=== PATIENT | male | born 1955 | race Caucasian/White ===

== ENCOUNTER 2018-12-10 22:05 | Emergency (ER) | payer SELFPAY ==
[2014-08-19 11:07] VITALS: BMI 33.5
[~2018-12-10 22:05] MED LIST: ASPI-757 PO; ASPIRIN; ATOR40TA24 PO; CEPH-13 PO; CLI150 PO; CLON0.5T66 PO; CLOP75TA PO; CRESTOR; ENOX100D6 SQ; FURO-47 PO; HYDR-653 PO; LASIX; LISI-362 PO; LISI5TAB25 PO; LOR5/325 PO; LOSA100T75 PO; METO-235 PO; METO-257 PO; METO100T20 PO; METO200T12 PO; Metoprolol Succinate PO; PAR20 PO; PARO-46 PO; PER PO; PRAS10TA PO; ROS10 PO; WARF2.5T62 PO; [UNRECOGNIZED DRUG - OTHER]; [UNRECOGNIZED DRUG - OTHER]
--- NOTE | 2018-12-10 22:20 | ER Report ---
History and Physical Time Seen By MD: 22:20 Hx. of Stated Complaint: nose bleed since 1600 then it stopped; it started up again when he stood up to pee and it started again HPI/ROS CHIEF COMPLAINT: Nosebleed HISTORY OF PRESENT ILLNESS: This is a 63-year-old male. He has had nosebleed today since about 4:00. Left nasal passage. Bleeding profusely. He is on warfarin therapy. He seen her nose and throat the past for nosebleeds and they said not to use any nasal packing. Denies any other bleeding. Warfarin uses been consistent and his INR has been therapeutic that he is aware of. No other bleeding. No nasal injuries recently. Allergies: Coded Allergies: heparin (Verified Allergy, Intermediate, ALMOST LOST A LEG, 06/24/15) Home Meds Active Scripts Hydrocodone Bit/Acetaminophen (NORCO 5-325 TABLET) 1 Each Tablet, 1 EACH PO Q4H PRN for PAIN, #12 Prov:LEROY ALVARADO DO 06/23/15 Cephalexin (KEFLEX) 500 Mg Capsule, 500 MG PO TID for prevention of infection, #30 CAP Prov:LEROY ALVARADO DO 06/23/15 [Metoprolol Succinate] 50 MG TABCR No Conflict Check, 50 MG PO QDAY, #30 TAB Prov:SHELDON WEBER DO 08/21/14 Reported Medications Metoprolol Succinate (TOPROL XL) 100 Mg Tab.er.24h, 1 TAB PO QDAY, TAB 05/16/15 Paroxetine Hcl (PAROXETINE HCL) 20 Mg Tablet, 20 MG PO QDAY 05/16/15 Losartan Potassium (LOSARTAN POTASSIUM) 100 Mg Tablet, 100 MG PO QDAY 05/16/15 Atorvastatin Calcium (LIPITOR) 40 Mg Tablet, 1 TAB PO QDAY, TAB 05/16/15 Rosuvastatin Calcium (CRESTOR) 10 Mg Tab, 20 MG PO QDAY, TAB Take 1 tablet daily 05/17/13 Aspirin (ASPIRIN) 325 Mg Tablet, 325 MG PO DAILY 05/17/13 Reviewed Nurses Notes: Yes Hx Smoking: No Smoking Status: Former Smoker Exposure to Second Hand Smoke?: No Hx Substance Use Disorder: No Hx Alcohol Use: No Constitutional Vital Sign - Last 24 Hours 12/10/18 22:16 Temp 97.8 Pulse 50 Resp 18 B/P (MAP) 121/70 Pulse Ox 95 O2 Delivery Room Air Physical Exam General Appearance: Alert, no distress. Eyes: Pupils equal and round no pallor or injection. ENT: Mucous membranes are moist. Oral mucosa is normal in appearance. Posterior oropharynx has no erythema or exudates. Nasal passage shows bleeding from the left nasal passage, anterior nasal septum identified. Skin: Warm and dry, no bruising. DIFFERENTIAL DIAGNOSIS: After history and physical exam differential diagnosis was considered for nosebleed, left nasal passage, anterior nasal septum Medical Decision Making Data Points Result Diagram: 12/10/18 2250 Laboratory Hematology Test 12/10/18 22:50 Red Blood Count 5.28 M/uL (4.00-5.60) Mean Corpuscular Volume 93.2 fL (80.0-96.0) Mean Corpuscular Hemoglobin 31.6 pg (26.0-33.0) Mean Corpuscular Hemoglobin Concent 33.9 g/dL (32.0-36.0) Red Cell Distribution Width 15.3 % (11.5-14.5) Mean Platelet Volume 8.3 fL (7.2-11.1) Neutrophils (%) (Auto) 64.3 % (39.4-72.5) Lymphocytes (%) (Auto) 25.1 % (17.6-49.6) Monocytes (%) (Auto) 7.3 % (4.1-12.4) Eosinophils (%) (Auto) 2.0 % (0.4-6.7) Basophils (%) (Auto) 1.3 % (0.3-1.4) Nucleated RBC Relative Count (auto) 0.0 /100WBC Neutrophils # (Auto) 4.0 K/uL (2.0-7.4) Lymphocytes # (Auto) 1.6 K/uL (1.3-3.6) Monocytes # (Auto) 0.5 K/uL (0.3-1.0) Eosinophils # (Auto) 0.1 K/uL (0.0-0.5) Basophils # (Auto) 0.1 K/uL (0.0-0.1) Nucleated RBC Absolute Count (auto) 0.00 K/uL Prothrombin Time 26.0 seconds (12.0-14.4) Prothromb Time International Ratio 2.33 Chemistry Test 12/10/18 22:50 White Blood Count 6.3 k/uL (4.5-11.0) Red Blood Count 5.28 M/uL (4.00-5.60) Hemoglobin 16.7 g/dL (14.0-18.0) Hematocrit 49.2 % (42.0-52.0) Mean Corpuscular Volume 93.2 fL (80.0-96.0) Mean Corpuscular Hemoglobin 31.6 pg (26.0-33.0) Mean Corpuscular Hemoglobin Concent 33.9 g/dL (32.0-36.0) Red Cell Distribution Width 15.3 % (11.5-14.5) Platelet Count 150 K/uL (150-450) Mean Platelet Volume 8.3 fL (7.2-11.1) Neutrophils (%) (Auto) 64.3 % (39.4-72.5) Lymphocytes (%) (Auto) 25.1 % (17.6-49.6) Monocytes (%) (Auto) 7.3 % (4.1-12.4) Eosinophils (%) (Auto) 2.0 % (0.4-6.7) Basophils (%) (Auto) 1.3 % (0.3-1.4) Nucleated RBC Relative Count (auto) 0.0 /100WBC Neutrophils # (Auto) 4.0 K/uL (2.0-7.4) Lymphocytes # (Auto) 1.6 K/uL (1.3-3.6) Monocytes # (Auto) 0.5 K/uL (0.3-1.0) Eosinophils # (Auto) 0.1 K/uL (0.0-0.5) Basophils # (Auto) 0.1 K/uL (0.0-0.1) Nucleated RBC Absolute Count (auto) 0.00 K/uL Prothrombin Time 26.0 seconds (12.0-14.4) Prothromb Time International Ratio 2.33 Coagulation Test 12/10/18 22:50 Prothrombin Time 26.0 seconds Prothromb Time International Ratio 2.33 ED Course/Re-evaluation ED Course Procedure: Epistaxis control. Initially treated with compression with a nasal clamp. The patient had continued bleeding. We then used Neosynephrine nasal spray to try and acheive some vasoconstriction to slow or stop the bleeding. We also used some cotton soaked with 1% lidocaine with epinephrine, 0.5cc in the nasal passage. The nose was re- clamped and we waited to re-evaluate. Re-evaluation revealed slowing of the bleeding. The was identified and was on the anterior nasal septum. Cautery was attempted with silver nitrate. Then used some cotton soaked with the lidocaine with epinephrine again Following the procedure the patient was re-examined and the bleeding was well controlled. The patient tolerated the procedure well. The procedure was performed by myself. Decision to Disposition Date: Dec 11, 2018 Decision to Disposition Time: 00:16 Depart Departure Latest Vital Signs Vital Signs Date Time Temp Pulse Resp B/P (MAP) Pulse Ox O2 Delivery O2 Flow Rate FiO2 12/10/18 22:16 97.8 50 18 121/70 95 Room Air Impression: Primary Impression: Epistaxis Condition: Improved Disposition: HOME OR SELF-CARE Referrals: JAN SEQUEIRA (PCP) Patient Instructions: Nosebleed (ED) Additional Instructions: Consider follow-up with Dr. Camacho for re-evaluation. Consider starting use of a humidifier FOSTER CRUZ MD Dec 10, 2018 22:21
[2018-12-10] MEDS ORDERED: TRANEXAMIC AC 1000 MG/10ML SDV 1,000 MG in DEXTROSE 5% 50 ML BAG 50 ML IVPB ONE (22:30)
[2018-12-10] MEDS ORDERED: PHENYLEPHRINE 0.5% 15 ML BTL ONE (22:35)
[2018-12-10 23:02] LABS: PLATELET COUNT, AUTOMATED 150 K/uL (150-450)
[2018-12-10 23:06] LABS: INR 2.33
[2018-12-11] VITALS: BP 90/72
[2018-12-11] MEDS ORDERED: ASPI-1471 PO (13:29)
[2018-12-11] MEDS ORDERED: WARF5TAB23 PO (13:29)
== END 2018-12-11 00:23 | disposition home or self-care (01) ==
LOC: ER 22:16
DX: R04.0 Epistaxis (principal); Z79.01 Long term (current) use of anticoagulants
CPT/HCPCS: 30901; 36415; 85025; 85610; 99283; J7060

== ENCOUNTER 2018-12-11 03:53 | Emergency (ER) | payer SELFPAY ==
[2014-08-19 11:07] VITALS: Wt 109.0 kg
--- NOTE | 2018-12-11 04:04 | ER Report ---
History and Physical Time Seen By MD: 04:04 HPI/ROS CHIEF COMPLAINT: Recurrent nosebleed HISTORY OF PRESENT ILLNESS: This is a 63-year-old male. Some earlier in the evening. Nosebleed. See note for details. Was sitting at home and had recurrent nosebleed. Allergies: Coded Allergies: heparin (Verified Allergy, Intermediate, ALMOST LOST A LEG, 12/11/18) Home Meds Active Scripts Hydrocodone Bit/Acetaminophen (NORCO 5-325 TABLET) 1 Each Tablet, 1 EACH PO Q4H PRN for PAIN, #12 Prov:LEROY ALVARADO DO 06/23/15 Cephalexin (KEFLEX) 500 Mg Capsule, 500 MG PO TID for prevention of infection, #30 CAP Prov:LEROY ALVARADO DO 06/23/15 [Metoprolol Succinate] 50 MG TABCR No Conflict Check, 50 MG PO QDAY, #30 TAB Prov:SHELDON WEBER DO 08/21/14 Reported Medications Metoprolol Succinate (TOPROL XL) 100 Mg Tab.er.24h, 1 TAB PO QDAY, TAB 05/16/15 Paroxetine Hcl (PAROXETINE HCL) 20 Mg Tablet, 20 MG PO QDAY 05/16/15 Losartan Potassium (LOSARTAN POTASSIUM) 100 Mg Tablet, 100 MG PO QDAY 05/16/15 Atorvastatin Calcium (LIPITOR) 40 Mg Tablet, 1 TAB PO QDAY, TAB 05/16/15 Rosuvastatin Calcium (CRESTOR) 10 Mg Tab, 20 MG PO QDAY, TAB Take 1 tablet daily 05/17/13 Aspirin (ASPIRIN) 325 Mg Tablet, 325 MG PO DAILY 05/17/13 Reviewed Nurses Notes: Yes Hx Smoking: No Smoking Status: Former Smoker Exposure to Second Hand Smoke?: No Hx Substance Use Disorder: No Hx Alcohol Use: No Constitutional Vital Sign - Last 24 Hours 12/11/18 12/11/18 12/11/18 12/11/18 03:57 04:08 04:23 04:30 Pulse 55 55 52 Resp 20 B/P (MAP) 105/62 105/62 (76) Pulse Ox 90 89 89 O2 Delivery Room Air 12/11/18 12/11/18 12/11/18 04:38 04:53 05:00 Pulse 53 51 B/P (MAP) 91/55 (67) Pulse Ox 88 Physical Exam Having blood from both nasal passages, significant amount. Looks like more from the left side where his bleed was earlier tonight. Medical Decision Making ED Course/Re-evaluation ED Course Procedure: Epistaxis control. Initially treated with compression with a nasal clamp. Less bleeding after this. Had him blow his nose to clear clots out of the nose. Evaluation shows continued anterior nasal septum bleed in the left side. We then used Neosynephrine nasal spray to try and acheive some vasoconstriction to slow or stop the bleeding. Repeat summer nitrate cautery. Used some lidocaine 1% with epinephrine soaked in cotton in the left nasal passage The nose was re-clamped and we waited to re- evaluate. Re-evaluation revealed slowing of the bleeding. Following the procedure the patient was re-examined and the bleeding was well controlled. The patient tolerated the procedure well. The procedure was performed by myself. Decision to Disposition Date: Dec 11, 2018 Decision to Disposition Time: 05:03 Depart Departure Latest Vital Signs Vital Signs Date Time Temp Pulse Resp B/P (MAP) Pulse Ox O2 Delivery O2 Flow Rate FiO2 12/11/18 05:00 91/55 (67) 12/11/18 04:53 51 88 12/11/18 03:57 20 Room Air Impression: Primary Impression: Epistaxis Condition: Improved Disposition: HOME OR SELF-CARE Referrals: JAN SEQUEIRA (PCP) Patient Instructions: Nosebleed (ED) Additional Instructions: Call Dr. Camacho's office today to schedule an appointment with him for definitive care. FOSTER CRUZ MD Dec 11, 2018 04:05
[2018-12-11] MEDS ORDERED: ENT KIT ONE (04:05)
[2018-12-11 05:00] VITALS: BP 91/55
[2018-12-11] MEDS ORDERED: LIDO/EPI 2% MDV 1:100,000 20ML INFIL ONE (06:03)
[2018-12-11] MEDS ORDERED: PHENYLEPHRINE 0.5% 15 ML BTL ONE (06:03)
[2018-12-11] MEDS ORDERED: SILVER NITRATE SWABS 10 PKG TP ONE (06:03)
[2018-12-11] MEDS ORDERED: WARF5TAB23 PO (13:29)
[2018-12-11] MEDS ORDERED: ASPI-1471 PO (13:29)
== END 2018-12-11 05:12 | disposition home or self-care (01) ==
LOC: ER 04:09
DX: R04.0 Epistaxis (principal)
CPT/HCPCS: 99282

== ENCOUNTER 2018-12-11 13:12 | Emergency (ER) | payer SELFPAY ==
[2014-08-19 11:07] VITALS: Wt 109.0 kg
--- NOTE | 2018-12-11 13:20 | ER Report ---
History and Physical Time Seen By MD: 13:19 HPI/ROS CHIEF COMPLAINT: Recurrent epistaxis HISTORY OF PRESENT ILLNESS: Patient is a 63-year-old male here with recurrent epistaxis. Patient was seen twice overnight shift and was given intravenous TXA, cauterization the patient started rebleeding. Patient is on Coumadin. Epistaxis is present in the left naris. Patient was hemodynamically stable time of evaluation, complaining of persistent bleeding. REVIEW OF SYSTEMS: Constitutional: No fever, no chills. Eyes: No discharge. ENT: Bleeding from the left naris Cardiovascular: No chest pain, no palpitations. Respiratory: No cough, no shortness of breath. Gastrointestinal: No abdominal pain, no vomiting. Genitourinary: No hematuria. Musculoskeletal: No back pain. Skin: No rashes. Neurological: No headache. Allergies: Coded Allergies: heparin (Verified Allergy, Intermediate, ALMOST LOST A LEG, 12/11/18) Home Meds Active Scripts Cephalexin (KEFLEX) 500 Mg Capsule, 500 MG PO TID for prevention of infection, #30 CAP Prov:LEROY ALVARADO DO 06/23/15 Reported Medications Warfarin Sodium (WARFARIN SODIUM) 5 Mg Tablet, 5 MG PO QDAY, TAB 12/11/18 Aspirin (ASPIR 81) 81 Mg Tablet.dr, 81 MG PO QDAY, TAB 12/11/18 Metoprolol Succinate (TOPROL XL) 100 Mg Tab.er.24h, 1 TAB PO QDAY, TAB 05/16/15 Paroxetine Hcl (PAROXETINE HCL) 20 Mg Tablet, 20 MG PO QDAY 05/16/15 Losartan Potassium (LOSARTAN POTASSIUM) 100 Mg Tablet, 100 MG PO QDAY 05/16/15 Atorvastatin Calcium (LIPITOR) 40 Mg Tablet, 1 TAB PO QDAY, TAB 05/16/15 Discontinued Reported Medications Rosuvastatin Calcium (CRESTOR) 10 Mg Tab, 20 MG PO QDAY, TAB Take 1 tablet daily 05/17/13 Aspirin (ASPIRIN) 325 Mg Tablet, 325 MG PO DAILY 05/17/13 Discontinued Scripts Hydrocodone Bit/Acetaminophen (NORCO 5-325 TABLET) 1 Each Tablet, 1 EACH PO Q4H PRN for PAIN, #12 Prov:LEROY ALVARADO DO 06/23/15 [Metoprolol Succinate] 50 MG TABCR No Conflict Check, 50 MG PO QDAY, #30 TAB Prov:SHELDON WEBER DO 08/21/14 Hx Smoking: No Smoking Status: Former Smoker Exposure to Second Hand Smoke?: No Hx Substance Use Disorder: No Hx Alcohol Use: No Constitutional Vital Sign - Last 24 Hours 12/11/18 12/11/18 12/11/18 12/11/18 13:21 13:30 13:45 14:00 Pulse 48 50 50 50 Resp 18 B/P (MAP) 108/78 Pulse Ox 95 91 93 92 O2 Delivery Room Air 12/11/18 12/11/18 12/11/18 14:15 14:30 14:44 Pulse 50 50 B/P (MAP) 93/65 (74) Pulse Ox 93 92 Physical Exam General Appearance: The patient is alert, has no immediate need for airway protection and no signs of toxicity. No acute distress Eyes: Pupils equal and round no pallor or injection. ENT, Mouth: Persistent bleeding from the left naris, bleeding vessel was identified in the Kiesselbach's plexus Respiratory: There are no retractions, lungs are clear to auscultation. Cardiovascular: Regular rate and rhythm. [ ] Gastrointestinal: Abdomen is soft and non tender, no masses, bowel sounds normal. Neurological: No focal neurological findings Skin: Warm and dry, no rashes. Musculoskeletal: Neck is supple non tender. Extremities are nontender, nonswollen and have full range of motion. DIFFERENTIAL DIAGNOSIS: After history and physical exam differential diagnosis was considered for anterior versus posterior epistaxis Medical Decision Making ED Course/Re-evaluation ED Course Topical tranexamic acid was applied via a Cotton pledget in order to slow the bleeding. A Surgicel dressing was applied directly to Kiesselbechs plexus. A Rhino Rocket was then applied adjacent to the dressing and Surgicel dressing was further packed. Tranexamic acid was soaked into the Rhino Rocket and hemostasis was achieved at that time. Patient remained hemodynamically stable throughout course. Patient was given contact information for ENT for Dr. Sexton. Patient was well-appearing at time of discharge. Decision to Disposition Date: Dec 11, 2018 Decision to Disposition Time: 14:36 Depart Departure Latest Vital Signs Vital Signs Date Time Temp Pulse Resp B/P (MAP) Pulse Ox O2 Delivery O2 Flow Rate FiO2 12/11/18 14:44 93/65 (74) 12/11/18 14:30 50 92 12/11/18 13:21 18 Room Air Impression: Primary Impression: Epistaxis Condition: Improved Disposition: HOME OR SELF-CARE Referrals: JAN SEQUEIRA (PCP) Patient Instructions: Nosebleed (GEN) Additional Instructions: Please follow up with Dr. Sexton in the next 24-48 hours. Please return immediately if you develop recurrent bleeding. Please keep the packing in place until you're able to follow-up with ENT. Dr. Marcel Sexton [facility] [address], [place] [phone] ROMMEL CANTRELL DO Dec 11, 2018 13:20
[2018-12-11] MEDS ORDERED: TRANEXAMIC AC 1000 MG/10ML SDV ONE (13:28)
[2018-12-11] MEDS ORDERED: ASPI-1471 PO (13:29)
[2018-12-11] MEDS ORDERED: WARF5TAB23 PO (13:29)
[2018-12-11 14:44] VITALS: BP 93/65
[2018-12-11] MEDS ORDERED: PHENYLEPHRINE 0.5% 15 ML BTL ONE (15:43)
== END 2018-12-11 14:49 | disposition home or self-care (01) ==
LOC: ER 13:30
DX: R04.0 Epistaxis (principal); Z79.01 Long term (current) use of anticoagulants
CPT/HCPCS: 30903; 99282

== ENCOUNTER 2018-12-11 18:21 | Emergency (ER) | payer SELFPAY ==
[2014-08-19 11:07] VITALS: Wt 109.0 kg
[~2018-12-11 18:21] MED LIST changes: +ASPI-1471 PO; +WARF5TAB23 PO
--- NOTE | 2018-12-11 18:30 | ER Report ---
History and Physical Time Seen By MD: 18:28 Hx. of Stated Complaint: nose bleed HPI/ROS CHIEF COMPLAINT: Recurrent nosebleed HISTORY OF PRESENT ILLNESS: This is a 63-year-old male who returns to the emergency department for recurrent nosebleed. Patient has been seen and evaluated emergency department 3 times prior to this visit for nosebleed, within the last 24 hours. He's had multiple medications, attempts at stopping the nosebleed. The last visit was about 3 hours prior to arrival, had a Rhino rocket placed with Surgicel, patient states that when he lays down he gets some postnasal drainage and dripping, he states when he sits up he is okay still oozes a small amount but is not producing a large amount of blood. He denies chest pain or shortness of breath. No lightheadedness. No visual changes. No nausea or vomiting. No other complaints. REVIEW OF SYSTEMS: ENT: As above. Respiratory: No cough, no dyspnea. Cardiovascular: No chest pain, no palpitations. Gastrointestinal: No vomiting, no abdominal pain. Musculoskeletal: No back pain. Allergies: Coded Allergies: heparin (Verified Allergy, Intermediate, ALMOST LOST A LEG, 12/11/18) Home Meds Active Scripts Cephalexin (KEFLEX) 500 Mg Capsule, 500 MG PO TID for prevention of infection, #30 CAP Prov:LEROY ALVARADO Lisbeth LR 06/23/15 Reported Medications Warfarin Sodium (WARFARIN SODIUM) 5 Mg Tablet, 5 MG PO QDAY, TAB 12/11/18 Aspirin (ASPIR 81) 81 Mg Tablet.dr, 81 MG PO QDAY, TAB 12/11/18 Metoprolol Succinate (TOPROL XL) 100 Mg Tab.er.24h, 1 TAB PO QDAY, TAB 05/16/15 Paroxetine Hcl (PAROXETINE HCL) 20 Mg Tablet, 20 MG PO QDAY 05/16/15 Losartan Potassium (LOSARTAN POTASSIUM) 100 Mg Tablet, 100 MG PO QDAY 05/16/15 Atorvastatin Calcium (LIPITOR) 40 Mg Tablet, 1 TAB PO QDAY, TAB 05/16/15 Discontinued Reported Medications Rosuvastatin Calcium (CRESTOR) 10 Mg Tab, 20 MG PO QDAY, TAB Take 1 tablet daily 05/17/13 Aspirin (ASPIRIN) 325 Mg Tablet, 325 MG PO DAILY 05/17/13 Discontinued Scripts Hydrocodone Bit/Acetaminophen (NORCO 5-325 TABLET) 1 Each Tablet, 1 EACH PO Q4H PRN for PAIN, #12 Prov:LEROY ALVARADO DO 06/23/15 [Metoprolol Succinate] 50 MG TABCR No Conflict Check, 50 MG PO QDAY, #30 TAB Prov:SHELDON WEBER DO 08/21/14 Past Medical/Surgical History The patient has a past medical and surgical history of myocardial infarction, AICD placement, DVT, 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 Reviewed Nurses Notes: Yes Hx Smoking: No Smoking Status: Former Smoker Exposure to Second Hand Smoke?: No Hx Substance Use Disorder: No Hx Alcohol Use: No Constitutional Vital Sign - Last 24 Hours 12/11/18 12/11/18 12/11/18 12/11/18 18:24 18:30 18:36 18:51 Temp 97.4 Pulse 52 50 50 Resp 16 B/P (MAP) 110/62 98/58 (71) Pulse Ox 88 86 89 O2 Delivery Room Air 12/11/18 12/11/18 12/11/18 12/11/18 19:00 19:06 19:21 19:30 Pulse 50 50 B/P (MAP) 100/61 (74) 107/60 (76) Pulse Ox 85 87 12/11/18 12/11/18 12/11/18 12/11/18 19:36 19:51 19:56 20:00 Pulse 50 50 50 B/P (MAP) 105/66 (79) Pulse Ox 88 87 89 12/11/18 12/11/18 12/11/18 12/11/18 20:11 20:16 20:30 20:46 Pulse 50 50 50 B/P (MAP) 92/80 (84) Pulse Ox 90 84 89 Physical Exam General Appearance: The patient is alert, has no immediate need for airway protection and no current signs of toxicity. Eyes: Pupils equal and round no injection. ENT: Rhino Rocket packing placed in the left nares, small amount of oozing from the right nares. Respiratory: Chest is non tender, lungs are clear to auscultation. Cardiac: regular rate and rhythm. Gastrointestinal: Abdomen is soft and non tender, no masses, bowel sounds normal. Musculoskeletal: Neck: Neck is supple and non tender. Extremities have full range of motion and are non tender. Skin: No rashes or lesions. DIFFERENTIAL DIAGNOSIS: After history and physical exam differential diagnosis was considered for nosebleed. Medical Decision Making Data Points Result Diagram: 12/11/18185112/11/181851 Laboratory Hematology Test 12/11/18 18:52 Red Blood Count 4.97 M/uL (4.00-5.60) Mean Corpuscular Volume 93.1 fL (80.0-96.0) Mean Corpuscular Hemoglobin 31.7 pg (26.0-33.0) Mean Corpuscular Hemoglobin Concent 34.1 g/dL (32.0-36.0) Red Cell Distribution Width 15.3 % (11.5-14.5) Mean Platelet Volume 8.3 fL (7.2-11.1) Neutrophils (%) (Auto) 65.5 % (39.4-72.5) Lymphocytes (%) (Auto) 19.8 % (17.6-49.6) Monocytes (%) (Auto) 9.5 % (4.1-12.4) Eosinophils (%) (Auto) 2.9 % (0.4-6.7) Basophils (%) (Auto) 2.3 % (0.3-1.4) Nucleated RBC Relative Count (auto) 0.0 /100WBC Neutrophils # (Auto) 4.8 K/uL (2.0-7.4) Lymphocytes # (Auto) 1.4 K/uL (1.3-3.6) Monocytes # (Auto) 0.7 K/uL (0.3-1.0) Eosinophils # (Auto) 0.2 K/uL (0.0-0.5) Basophils # (Auto) 0.2 K/uL (0.0-0.1) Nucleated RBC Absolute Count (auto) 0.00 K/uL Prothrombin Time 22.6 seconds (12.0-14.4) Prothromb Time International Ratio 1.96 Activated Partial Thromboplast Time 31 seconds (23-35) Sodium Level 136 mmol/L (137-145) Potassium Level 3.8 mmol/L (3.5-5.0) Chloride Level 100 mmol/L (98-107) Carbon Dioxide Level 24 mmol/L (22-30) Blood Urea Nitrogen 30 mg/dl (9-21) Creatinine 0.90 mg/dl (0.66-1.25) Glomerular Filtration Rate Calc > 60.0 Random Glucose 109 mg/dl (75-110) Calcium Level 9.0 mg/dl (8.4-10.2) Total Bilirubin 0.5 mg/dl (0.2-1.3) Aspartate Amino Transf (AST/SGOT) 21 U/L (0-35) Alanine Aminotransferase (ALT/SGPT) 34 U/L (0-56) Alkaline Phosphatase 80 U/L (0-126) Total Protein 7.2 g/dl (6.3-8.2) Albumin 4.1 g/dl (3.5-5.0) Chemistry Test 12/11/18 18:52 White Blood Count 7.3 k/uL (4.5-11.0) Red Blood Count 4.97 M/uL (4.00-5.60) Hemoglobin 15.8 g/dL (14.0-18.0) Hematocrit 46.3 % (42.0-52.0) Mean Corpuscular Volume 93.1 fL (80.0-96.0) Mean Corpuscular Hemoglobin 31.7 pg (26.0-33.0) Mean Corpuscular Hemoglobin Concent 34.1 g/dL (32.0-36.0) Red Cell Distribution Width 15.3 % (11.5-14.5) Platelet Count 152 K/uL (150-450) Mean Platelet Volume 8.3 fL (7.2-11.1) Neutrophils (%) (Auto) 65.5 % (39.4-72.5) Lymphocytes (%) (Auto) 19.8 % (17.6-49.6) Monocytes (%) (Auto) 9.5 % (4.1-12.4) Eosinophils (%) (Auto) 2.9 % (0.4-6.7) Basophils (%) (Auto) 2.3 % (0.3-1.4) Nucleated RBC Relative Count (auto) 0.0 /100WBC Neutrophils # (Auto) 4.8 K/uL (2.0-7.4) Lymphocytes # (Auto) 1.4 K/uL (1.3-3.6) Monocytes # (Auto) 0.7 K/uL (0.3-1.0) Eosinophils # (Auto) 0.2 K/uL (0.0-0.5) Basophils # (Auto) 0.2 K/uL (0.0-0.1) Nucleated RBC Absolute Count (auto) 0.00 K/uL Prothrombin Time 22.6 seconds (12.0-14.4) Prothromb Time International Ratio 1.96 Activated Partial Thromboplast Time 31 seconds (23-35) Glomerular Filtration Rate Calc > 60.0 Calcium Level 9.0 mg/dl (8.4-10.2) Total Bilirubin 0.5 mg/dl (0.2-1.3) Aspartate Amino Transf (AST/SGOT) 21 U/L (0-35) Alanine Aminotransferase (ALT/SGPT) 34 U/L (0-56) Alkaline Phosphatase 80 U/L (0-126) Total Protein 7.2 g/dl (6.3-8.2) Albumin 4.1 g/dl (3.5-5.0) Coagulation Test 12/11/18 18:52 Prothrombin Time 22.6 seconds Prothromb Time International Ratio 1.96 Activated Partial Thromboplast Time 31 seconds ED Course/Re-evaluation ED Course The patient was admitted to room. A history and physical were obtained. Differential diagnoses were considered. The patient has had continuous oozing out of the left nares since his previous ER intervention today, which consisted of a rhino rocket soaked in TXA and surgicel. We discussed several options, including continue with his follow up appointment Monday with Dr. Frederick, ENT or transfer to [facility] or [facility] for ENT intervention tonight. He states he cannot continue like this and would like to transfer. I did repeat CBC, CMP and INR tonight, H&H essentially unchanged, today 15.8 and 46.3, chemistry showing so dium 136 INR 1.96, down from yesterday's study of 2.33, patient has only been taking half his Coumadin dosing since yesterday. Previous interventions include IV TXA, chemical cautery, Gene-Synephrine, lidocaine with epinephrine. I did not remove the Rhino Rocket tonight as I wanted to speak with ENT 1st. I did speak with Dr. Frederick, the ENT promotions executive producer as noted below. The patient will be transferred by POV as his labs, vitals and mentation are all appropriate for POV transfer. The patient is agreeable with this plan of care. 12/11/2018 9:00:39 pm I did speak with Dr. Frederick, the pearl glue operator promotions executive producer at [facility] and [facility], he has accepted the patient for a transfer and will be sent to the [facility] ER where he will meet the patient for evaluation of the left sided epistaxis. Decision to Disposition Date: Dec 11, 2018 Decision to Disposition Time: 21:03 Depart Departure Latest Vital Signs Vital Signs Date Time Temp Pulse Resp B/P (MAP) Pulse Ox O2 Delivery O2 Flow Rate FiO2 12/11/18 20:46 50 89 12/11/18 20:30 92/80 (84) 12/11/18 18:24 97.4 16 Room Air Impression: Primary Impression: Epistaxis Condition: Improved Disposition: XFER TO [facility] ([facility], for ENT) Referrals: JAN SEQUEIRA (PCP) DEMARCO OQUENDOP-BC Dec 11, 2018 18:30
[2018-12-11 19:03] LABS: PLATELET COUNT, AUTOMATED 152 K/uL (150-450)
[2018-12-11 19:27] LABS: INR 1.96
[2018-12-11 20:30] VITALS: BP 92/80
== END 2018-12-11 21:19 | disposition short-term general hospital (02) ==
LOC: ER 18:56
DX: R04.0 Epistaxis (principal)
CPT/HCPCS: 36415; 82040; 82247; 82310; 82374; 82435; 82565; 82947; 84075; 84132; 84155; 84295; 84450; 84460; 84520; 85025; 85610; 85730; 99285

== ENCOUNTER 2018-12-26 17:23 | Emergency (ER) | payer SELFPAY ==
[2014-08-19 11:07] VITALS: Wt 117.9 kg
[~2018-12-26 17:23] MED LIST changes: -ROS10 PO; +ROSU10TA PO
[2018-12-26] MEDS ORDERED: TRANEXAMIC AC 1000 MG/10ML SDV ONE (17:40)
--- NOTE | 2018-12-26 17:40 | ER Report ---
History and Physical Time Seen By MD: 17:36 Hx. of Stated Complaint: NOSEBLEED FOR 1 HOUR. BLEEDING NOT CONTROLLED WELL AT THIS TIME. WAS SEEN 2 WEEKS AGO AND IT WAS CAUTERIZED. PATIENT IS ON COUMADIN HPI/ROS CHIEF COMPLAINT: Nosebleed HISTORY OF PRESENT ILLNESS: This is a 59 4L male who presents to the emergency department for recurrent nosebleeds. Patient has been seen and evaluated in the emergency department proximal 4 times for nosebleeds, was transferred down to [place] to see the staff nuclear weapons officer couple weeks ago, where they were able to stop the bleeding, patient states he's been doing okay since then then today was doing some work around his house, developed a left-sided nosebleed, unable to the stop descended come in for evaluation. Patient arrives with packing in the left nares from home, significant amount of bleeding down his nose chin and down to his chest. He states otherwise he is feeling okay, no lightheadedness, no chest pain or shortness of breath. No rashes, no headaches. REVIEW OF SYSTEMS: Constitutional: No fever, no chills. Eyes: No discharge. ENT: As above. Cardiovascular: No chest pain, no palpitations. Respiratory: No cough, no shortness of breath. Gastrointestinal: No abdominal pain, no vomiting. Genitourinary: No hematuria. Musculoskeletal: No back pain. Skin: No rashes. Neurological: No headache. Allergies: Coded Allergies: heparin (Verified Allergy, Intermediate, ALMOST LOST A LEG, 12/11/18) Home Meds Active Scripts Cephalexin (KEFLEX) 500 Mg Capsule, 500 MG PO TID for prevention of infection, #30 CAP Prov:LEROY ALVARADO DO 06/23/15 Reported Medications Warfarin Sodium (WARFARIN SODIUM) 5 Mg Tablet, 5 MG PO QDAY, TAB 12/11/18 Aspirin (ASPIR 81) 81 Mg Tablet.dr, 81 MG PO QDAY, TAB 12/11/18 Metoprolol Succinate (TOPROL XL) 100 Mg Tab.er.24h, 1 TAB PO QDAY, TAB 05/16/15 Paroxetine Hcl (PAROXETINE HCL) 20 Mg Tablet, 20 MG PO QDAY 05/16/15 Losartan Potassium (LOSARTAN POTASSIUM) 100 Mg Tablet, 100 MG PO QDAY 05/16/15 Atorvastatin Calcium (LIPITOR) 40 Mg Tablet, 1 TAB PO QDAY, TAB 05/16/15 Past Medical/Surgical History Patient has a past medical and surgical history of clot around the heart, myocardial infarction, pulmonary embolus, phone fracture, skin grafts, depression, cardiac catheterization, coronary stent, tonsillectomy, eye surgery, recurrent nosebleeds. Reviewed Nurses Notes: Yes Hx Smoking: No Smoking Status: Former Smoker Exposure to Second Hand Smoke?: No Hx Substance Use Disorder: No Hx Alcohol Use: No Constitutional Vital Sign - Last 24 Hours 12/26/18 12/26/18 12/26/18 12/26/18 17:27 17:38 17:53 18:08 Pulse 61 61 59 65 Resp 18 Pulse Ox 86 85 88 86 O2 Delivery Room Air 12/26/18 12/26/18 12/26/18 12/26/18 18:23 18:38 18:53 18:58 Pulse 60 57 58 58 Pulse Ox 89 87 84 86 12/26/18 12/26/18 12/26/18 19:03 19:08 19:10 Pulse 60 56 B/P (MAP) 102/62 (75) Pulse Ox 82 90 Physical Exam General Appearance: The patient is alert, has no immediate need for airway protection and no signs of toxicity. Eyes: Pupils equal and round no pallor or injection. ENT, Mouth: Mucous membranes are moist. Anterior nosebleed the left nares. Respiratory: There are no retractions, lungs are clear to auscultation. Cardiovascular: Regular rate and rhythm. Gastrointestinal: Abdomen is soft and non tender, no masses, bowel sounds normal. Neurological: Alert and oriented 4 removing all Achilles. Following all commands. No focal neuro deficits. Skin: Warm and dry, no rashes. Musculoskeletal: Neck is supple non tender. Extremities are nontender, nonswollen and have full range of motion. DIFFERENTIAL DIAGNOSIS: After history and physical exam differential diagnosis was considered for epistaxis. Medical Decision Making Data Points Result Diagram: 12/26/18 1826 Laboratory Hematology Test 12/26/18 18:26 Red Blood Count 4.97 M/uL (4.00-5.60) Mean Corpuscular Volume 93.6 fL (80.0-96.0) Mean Corpuscular Hemoglobin 31.9 pg (26.0-33.0) Mean Corpuscular Hemoglobin Concent 34.1 g/dL (32.0-36.0) Red Cell Distribution Width 14.9 % (11.5-14.5) Mean Platelet Volume 7.7 fL (7.2-11.1) Neutrophils (%) (Auto) 75.5 % (39.4-72.5) Lymphocytes (%) (Auto) 10.8 % (17.6-49.6) Monocytes (%) (Auto) 8.3 % (4.1-12.4) Eosinophils (%) (Auto) 3.6 % (0.4-6.7) Basophils (%) (Auto) 1.8 % (0.3-1.4) Nucleated RBC Relative Count (auto) 0.2 /100WBC Neutrophils # (Auto) 6.0 K/uL (2.0-7.4) Lymphocytes # (Auto) 0.9 K/uL (1.3-3.6) Monocytes # (Auto) 0.7 K/uL (0.3-1.0) Eosinophils # (Auto) 0.3 K/uL (0.0-0.5) Basophils # (Auto) 0.1 K/uL (0.0-0.1) Nucleated RBC Absolute Count (auto) 0.01 K/uL Prothrombin Time 22.6 seconds (12.0-14.4) Prothromb Time International Ratio 1.96 Activated Partial Thromboplast Time 32 seconds (23-35) Chemistry Test 12/26/18 18:26 White Blood Count 7.9 k/uL (4.5-11.0) Red Blood Count 4.97 M/uL (4.00-5.60) Hemoglobin 15.8 g/dL (14.0-18.0) Hematocrit 46.5 % (42.0-52.0) Mean Corpuscular Volume 93.6 fL (80.0-96.0) Mean Corpuscular Hemoglobin 31.9 pg (26.0-33.0) Mean Corpuscular Hemoglobin Concent 34.1 g/dL (32.0-36.0) Red Cell Distribution Width 14.9 % (11.5-14.5) Platelet Count 210 K/uL (150-450) Mean Platelet Volume 7.7 fL (7.2-11.1) Neutrophils (%) (Auto) 75.5 % (39.4-72.5) Lymphocytes (%) (Auto) 10.8 % (17.6-49.6) Monocytes (%) (Auto) 8.3 % (4.1-12.4) Eosinophils (%) (Auto) 3.6 % (0.4-6.7) Basophils (%) (Auto) 1.8 % (0.3-1.4) Nucleated RBC Relative Count (auto) 0.2 /100WBC Neutrophils # (Auto) 6.0 K/uL (2.0-7.4) Lymphocytes # (Auto) 0.9 K/uL (1.3-3.6) Monocytes # (Auto) 0.7 K/uL (0.3-1.0) Eosinophils # (Auto) 0.3 K/uL (0.0-0.5) Basophils # (Auto) 0.1 K/uL (0.0-0.1) Nucleated RBC Absolute Count (auto) 0.01 K/uL Prothrombin Time 22.6 seconds (12.0-14.4) Prothromb Time International Ratio 1.96 Activated Partial Thromboplast Time 32 seconds (23-35) Coagulation Test 12/26/18 18:26 Prothrombin Time 22.6 seconds Prothromb Time International Ratio 1.96 Activated Partial Thromboplast Time 32 seconds ED Course/Re-evaluation ED Course The patient was admitted to room. A history of sore obtained. Differential diagnoses were considered. The nosebleed was managed as noted below, after roughly 45 minutes to an hour of monitoring, no changes in the bleeding, the left nares seem to be stabilized, the patient was instructed to follow-up with ENT within 24 hours for reevaluation, if unable to follow-up with ENT due to the current weather, he can return to the ER within 24-48 for reevaluation. Patient takes breast understanding was discharged home. 12/26/2018 6:22:12 pm the patient's homemade nasal tampon was removed, patient was able to blow his nose, we were able to remove a significant clots from the left nares, on the bleeding was identified he anterior aspect of the nares, nearing the septum Gene-Synephrine was administered which did slow the bleeding, reevaluation showing continued bleeding, chemical cautery performed which slow the bleeding however continued to ooze which time a rapid Rhino soaked in [place] A was administered and pressure was applied to the nose, significant reduction in the bleeding. Decision to Disposition Date: Dec 26, 2018 Decision to Disposition Time: 19:03 Depart Departure Latest Vital Signs Vital Signs Date Time Temp Pulse Resp B/P (MAP) Pulse Ox O2 Delivery O2 Flow Rate FiO2 12/26/18 19:10 102/62 (75) 12/26/18 19:08 56 90 12/26/18 17:27 18 Room Air Impression: Primary Impression: Epistaxis Condition: Improved Disposition: HOME OR SELF-CARE Referrals: JAN SEQUEIRA (PCP) Patient Instructions: Nosebleed (ED) Additional Instructions: Please follow up with ENT within 24 hours or return to ED if unable to follow up with ENT within 24-48 hours. Keep the nasal packing until you follow up with ENT. You may ooze a little around the packing, if you do please apply the nasal clip and keep in place on the soft part of the nose for at least 30min. Please avoid bending over, straining or anything that will increase your blood pressure. Follow up with your PCP within 1-2 days for reevaluation too. Return to the ED for any other concerns or worsening symptoms. DEMARCO OQUENDOP-BC Dec 26, 2018 17:40
[2018-12-26] MEDS ORDERED: ENT KIT ONE (17:43)
[2018-12-26 18:33] LABS: PLATELET COUNT, AUTOMATED 210 K/uL (150-450)
[2018-12-26 18:42] LABS: INR 1.96
[2018-12-26 19:10] VITALS: BP 102/62
[2018-12-26] MEDS ORDERED: PHENYLEPHRINE 0.5% 15 ML BTL ONE (19:23)
[2018-12-26] MEDS ORDERED: SILVER NITRATE SWABS 10 PKG TP ONE (19:23)
== END 2018-12-26 19:14 | disposition home or self-care (01) ==
LOC: ER 17:53
DX: R04.0 Epistaxis (principal)
CPT/HCPCS: 36415; 85025; 85610; 85730; 99282

== ENCOUNTER 2019-03-10 19:18 | Inpatient (IN) | payer SELFPAY ==
[~2019-03-10] VITALS: Ht 170.2 cm; Wt 110.2 kg
--- NOTE | 2019-03-10 19:24 | ER Report ---
History and Physical Time Seen By MD: 19:23 HPI/ROS CHIEF COMPLAINT: Falls HISTORY OF PRESENT ILLNESS: Patient is a 63-year-old male with a history of venous thromboembolic disease including history of atrial clot, myocardial infarction with stenting pulmonary embolism is currently on Coumadin. Review of the electronic medical record does not show any recent primary care provider contacts or contacts for measurement of Coumadin levels. Additional history taken from the patient's ex- as well as the son. Patient is somewhat confused with slurring of speech. And with some inappropriate laughter. Patient states that over the past few days had multiple falls. He states he is taking his Coumadin. He states that the last time it checked which he cannot recall the exact date it was slightly elevated at 3.1. He cannot recall any instructions to adjust his Coumadin. The patient does live with his mother however his mother is currently hospitalized rehabbing from a hip fracture. The patient son states that he received a call around 6:30 PM today because the patient apparently having difficulty remembering his mother's phone number. He states this is usual he usually has intact memory. Patient denies any drinking of alcohol or taking of any other type of drugs. Both son and patient's ex- feel that the patient's somewhat tangential as well as slurring his speech slightly. Patient denies any headache or chest pain. He denies any shortness of breath. He denies any fevers or chills. REVIEW OF SYSTEMS: Constitutional: No fever, no chills. Eyes: No discharge. ENT: No sore throat. Cardiovascular: No chest pain, no palpitations. Respiratory: No cough, no shortness of breath. Gastrointestinal: No abdominal pain, no vomiting. Genitourinary: No hematuria. Musculoskeletal: No back pain. Skin: No rashes. Neurological: No headache. Frequent falls over the past 2 days Allergies: Coded Allergies: heparin (Verified Allergy, Intermediate, ALMOST LOST A LEG, 12/11/18) Home Meds Reported Medications Paroxetine Hcl (PAXIL) 20 Mg Tablet, 40 MG PO BID, TAB 03/10/19 Metoprolol Succinate (METOPROLOL SUCCINATE) 100 Mg Tab.er.24h, 2 TAB PO QDAY, TAB 03/10/19 Warfarin Sodium (WARFARIN SODIUM) 5 Mg Tablet, 5 MG PO QDAY, TAB 12/11/18 Aspirin (ASPIR 81) 81 Mg Tablet.dr, 81 MG PO QDAY, TAB 12/11/18 Losartan Potassium (LOSARTAN POTASSIUM) 100 Mg Tablet, 100 MG PO QDAY 05/16/15 Atorvastatin Calcium (LIPITOR) 40 Mg Tablet, 1 TAB PO QDAY, TAB 05/16/15 Discontinued Reported Medications Metoprolol Succinate (TOPROL XL) 100 Mg Tab.er.24h, 1 TAB PO QDAY, TAB 05/16/15 Paroxetine Hcl (PAROXETINE HCL) 20 Mg Tablet, 20 MG PO QDAY 05/16/15 Discontinued Scripts Cephalexin (KEFLEX) 500 Mg Capsule, 500 MG PO TID for prevention of infection, #30 CAP Prov:LEROY ALVARADO DO 06/23/15 Past Medical/Surgical History Past medical history for MIs, history of atrial thrombus, history of pulmonary embolism, on Coumadin. Denies history of diabetes. Denies history of alcohol abuse. Hx Smoking: No Smoking Status: Former Smoker Exposure to Second Hand Smoke?: No Hx Substance Use Disorder: No Hx Alcohol Use: No Constitutional Vital Sign - Last 24 Hours 03/10/19 03/10/19 03/10/19 03/10/19 19:26 19:32 19:44 19:48 Pulse 49 50 Resp 14 30 B/P (MAP) 119/90 119/90 (100) 117/75 (89) Pulse Ox 92 94 O2 Delivery Nasal Cannula 03/10/19 03/10/19 03/10/19 03/10/19 20:18 20:30 20:48 21:00 Pulse 53 50 48 Resp 14 14 B/P (MAP) 117/75 (89) 109/78 (88) Pulse Ox 93 91 03/10/19 03/10/19 21:30 22:00 Pulse 51 51 B/P (MAP) 103/87 (92) 106/96 (99) Pulse Ox 93 Intake and Output 03/10/19 03/10/19 03/11/19 15:00 23:00 07:00 Intake Total 500 ml Balance 500 ml Physical Exam General/Constitutional: Patient is somewhat somnolent, mild confusion and tangential, room air sat was 82% patient does not normally wear oxygen. Head: Normocephalic Eyes: Conjunctival clear, Pupils are equal and reactive to light. Extraocular muscles noted for no entrapment or palsy. Patient does have 2-3 beats of fatigable horizontal nystagmus. Sclera are clear and anicteric. Ears:External canals are clear. Tympanic membranes are clear with normal landmarks and light reflex. Nares: No rhinorrhea or bleeding. Turbinates are pink and moist. Oropharyngeal: Mucous membranes are moist. There is no pharyngeal erythema or exudate. There are no palatal petechiae. Uvula is midline and symmetrical. Neck: Supple, no adenopathy. Cardiovascular: Heart is regular but bradycardic with a rate of approximately 50 bpm rate and rhythm without audible murmurs, rubs or gallops. Pulmonary: Lungs are clear to auscultation bilaterally. There are no wheezes, rales, or rhonchi. Chest rise is symmetrical Abdomen: Soft, nontender, no guarding or peritoneal signs. Extremities: No gross deformities, No peripheral cyanosis. Able to move all 4 extremities. Neuro: Alert and oriented X3, Cranial nerves 2 thru 12 are intact and symmetrical. Neg Romberg; patient with what appears to be normal gait, however patient slow to ambulate Skin: No rashes, skin is warm dry and well perfused. NIH Stroke Scale: 1 Level of consciousness: Alert -0 Answers both questions correctly-0 Performs both tasks correctly-0 Best Gaze: Normal-0 Visual: No visual loss-0 Facial Palsy: Normal, symmetrical movements-0 Motor Left Arm: No drift for 10 seconds-0 Motor Right Arm: No drift for 10 seconds-0 Motor Left Leg: No drift for 5 seconds-0 Motor Right Leg: No drift for 5 seconds-0 Limb Ataxia: Absent-0 Sensory: Normal, no sensory loss-0 Best Language: Normal, no aphasia-0 Dysarthria: Mild to moderate dysarthria-1 Extinction and Inattention: No abnormality-0 Medical Decision Making Data Points Result Diagram: 03/10/19195603/10/191956 Laboratory Hematology Test 03/10/19 00:00 03/10/19 19:36 03/10/19 19:50 03/10/19 19:57 Stool Occult Blood (IFOB) Negative (NEGATIVE) Whole Blood Glucose 148 mg/DL (75-110) Urine Color Yellow Urine Clarity Clear Urine pH 5.0 pH (4.8-9.5) Urine Specific [place] 1.012 Urine Protein Negative mg/dL (NEGATIVE) Urine Glucose (UA) Negative mg/dL (NEGATIVE) Urine Ketones Negative mg/dL (NEGATIVE) Urine Blood Large (NEGATIVE) Urine Nitrite Negative (NEGATIVE) Urine Bilirubin Negative (NEGATIVE) Urine Urobilinogen Negative mg/dL (0.2-1.9) Urine Leukocyte Esterase Negative (NEGATIVE) Urine RBC 59 /HPF (0-2/HPF) Urine WBC 4 /HPF (0-5/HPF) Urine Squamous Epithelial Cells Few /LPF (</=FEW) Urine Bacteria Negative /HPF (NONE-FEW) Urine Mucus None /HPF (NONE-FEW) Urine Opiates Screen Positive Urine Barbiturates Screen Negative Ur Tricyclic Antidepressants Screen Negative Urine Phencyclidine Screen Negative Urine Amphetamines Screen Negative Urine Benzodiazepines Screen Negative Urine Cocaine Screen Negative Urine Cannabinoids Screen Negative Red Blood Count 5.23 M/uL (4.00-5.60) Mean Corpuscular Volume 90.1 fL (80.0-96.0) Mean Corpuscular Hemoglobin 30.1 pg (26.0-33.0) Mean Corpuscular Hemoglobin Concent 33.4 g/dL (32.0-36.0) Red Cell Distribution Width 14.9 % (11.5-14.5) Mean Platelet Volume 9.1 fL (7.2-11.1) Neutrophils (%) (Auto) 71.6 % (39.4-72.5) Lymphocytes (%) (Auto) 17.8 % (17.6-49.6) Monocytes (%) (Auto) 9.5 % (4.1-12.4) Eosinophils (%) (Auto) 0.6 % (0.4-6.7) Basophils (%) (Auto) 0.5 % (0.3-1.4) Nucleated RBC Relative Count (auto) 3.7 /100WBC Neutrophils # (Auto) 5.4 K/uL (2.0-7.4) Lymphocytes # (Auto) 1.4 K/uL (1.3-3.6) Monocytes # (Auto) 0.7 K/uL (0.3-1.0) Eosinophils # (Auto) 0.0 K/uL (0.0-0.5) Basophils # (Auto) 0.0 K/uL (0.0-0.1) Nucleated RBC Absolute Count (auto) 0.28 K/uL Prothrombin Time 38.2 seconds (12.0-14.4) Prothromb Time International Ratio 3.78 Activated Partial Thromboplast Time 37 seconds (23-35) Sodium Level 134 mmol/L (137-145) Potassium Level 4.4 mmol/L (3.5-5.0) Chloride Level 99 mmol/L (98-107) Carbon Dioxide Level 25 mmol/L (22-30) Blood Urea Nitrogen 86 mg/dl (9-21) Creatinine 2.20 mg/dl (0.66-1.25) Glomerular Filtration Rate Calc 30.3 Random Glucose 132 mg/dl (75-110) Osmolality 312 mOSM/K (275-295) Lactate 3.1 mmol/L (0.7-2.1) Calcium Level 9.0 mg/dl (8.4-10.2) Magnesium Level 1.9 mg/dl (1.7-2.2) Total Bilirubin 0.6 mg/dl (0.2-1.3) Aspartate Amino Transf (AST/SGOT) 559 U/L (0-35) Alanine Aminotransferase (ALT/SGPT) 572 U/L (0-56) Alkaline Phosphatase 81 U/L (0-126) Ammonia 13 UMOL/L (9-33) Troponin I 0.029 ng/ml B-Type Natriuretic Peptide 851 pg/ml (0-100) Total Protein 7.2 g/dl (6.3-8.2) Albumin 3.7 g/dl (3.5-5.0) Salicylates Level < 10 mg/L Salicylate Last Dose Date unk Acetaminophen Level < 10 ug/ml Serum Alcohol < 10 mg/dl Test 03/10/19 21:20 Total Creatine Kinase 93 U/L (55-170) Chemistry Test 03/10/19 00:00 03/10/19 19:36 03/10/19 19:50 03/10/19 19:57 Stool Occult Blood (IFOB) Negative (NEGATIVE) Whole Blood Glucose 148 mg/DL (75-110) Urine Color Yellow Urine Clarity Clear Urine pH 5.0 pH (4.8-9.5) Urine Specific [place] 1.012 Urine Protein Negative mg/dL (NEGATIVE) Urine Glucose (UA) Negative mg/dL (NEGATIVE) Urine Ketones Negative mg/dL (NEGATIVE) Urine Blood Large (NEGATIVE) Urine Nitrite Negative (NEGATIVE) Urine Bilirubin Negative (NEGATIVE) Urine Urobilinogen Negative mg/dL (0.2-1.9) Urine Leukocyte Esterase Negative (NEGATIVE) Urine RBC 59 /HPF (0-2/HPF) Urine WBC 4 /HPF (0-5/HPF) Urine Squamous Epithelial Cells Few /LPF (</=FEW) Urine Bacteria Negative /HPF (NONE-FEW) Urine Mucus None /HPF (NONE-FEW) Urine Opiates Screen Positive Urine Barbiturates Screen Negative Ur Tricyclic Antidepressants Screen Negative Urine Phencyclidine Screen Negative Urine Amphetamines Screen Negative Urine Benzodiazepines Screen Negative Urine Cocaine Screen Negative Urine Cannabinoids Screen Negative White Blood Count 7.6 k/uL (4.5-11.0) Red Blood Count 5.23 M/uL (4.00-5.60) Hemoglobin 15.7 g/dL (14.0-18.0) Hematocrit 47.1 % (42.0-52.0) Mean Corpuscular Volume 90.1 fL (80.0-96.0) Mean Corpuscular Hemoglobin 30.1 pg (26.0-33.0) Mean Corpuscular Hemoglobin Concent 33.4 g/dL (32.0-36.0) Red Cell Distribution Width 14.9 % (11.5-14.5) Platelet Count 179 K/uL (150-450) Mean Platelet Volume 9.1 fL (7.2-11.1) Neutrophils (%) (Auto) 71.6 % (39.4-72.5) Lymphocytes (%) (Auto) 17.8 % (17.6-49.6) Monocytes (%) (Auto) 9.5 % (4.1-12.4) Eosinophils (%) (Auto) 0.6 % (0.4-6.7) Basophils (%) (Auto) 0.5 % (0.3-1.4) Nucleated RBC Relative Count (auto) 3.7 /100WBC Neutrophils # (Auto) 5.4 K/uL (2.0-7.4) Lymphocytes # (Auto) 1.4 K/uL (1.3-3.6) Monocytes # (Auto) 0.7 K/uL (0.3-1.0) Eosinophils # (Auto) 0.0 K/uL (0.0-0.5) Basophils # (Auto) 0.0 K/uL (0.0-0.1) Nucleated RBC Absolute Count (auto) 0.28 K/uL Prothrombin Time 38.2 seconds (12.0-14.4) Prothromb Time International Ratio 3.78 Activated Partial Thromboplast Time 37 seconds (23-35) Glomerular Filtration Rate Calc 30.3 Osmolality 312 mOSM/K (275-295) Lactate 3.1 mmol/L (0.7-2.1) Calcium Level 9.0 mg/dl (8.4-10.2) Magnesium Level 1.9 mg/dl (1.7-2.2) Total Bilirubin 0.6 mg/dl (0.2-1.3) Aspartate Amino Transf (AST/SGOT) 559 U/L (0-35) Alanine Aminotransferase (ALT/SGPT) 572 U/L (0-56) Alkaline Phosphatase 81 U/L (0-126) Ammonia 13 UMOL/L (9-33) Troponin I 0.029 ng/ml B-Type Natriuretic Peptide 851 pg/ml (0-100) Total Protein 7.2 g/dl (6.3-8.2) Albumin 3.7 g/dl (3.5-5.0) Salicylates Level < 10 mg/L Salicylate Last Dose Date unk Acetaminophen Level < 10 ug/ml Serum Alcohol < 10 mg/dl Test 03/10/19 21:20 Total Creatine Kinase 93 U/L (55-170) Coagulation Test 03/10/19 19:57 Prothrombin Time 38.2 seconds Prothromb Time International Ratio 3.78 Activated Partial Thromboplast Time 37 seconds Toxicology Test 03/10/19 19:50 03/10/19 19:57 Urine Opiates Screen Positive Urine Barbiturates Screen Negative Ur Tricyclic Antidepressants Screen Negative Urine Phencyclidine Screen Negative Urine Amphetamines Screen Negative Urine Benzodiazepines Screen Negative Urine Cocaine Screen Negative Urine Cannabinoids Screen Negative Salicylates Level < 10 mg/L Salicylate Last Dose Date unk Acetaminophen Level < 10 ug/ml Serum Alcohol < 10 mg/dl Urinalysis Test 03/10/19 19:50 Urine Color Yellow Urine Clarity Clear Urine pH 5.0 pH (4.8-9.5) Urine Specific [place] 1.012 Urine Protein Negative mg/dL (NEGATIVE) Urine Glucose (UA) Negative mg/dL (NEGATIVE) Urine Ketones Negative mg/dL (NEGATIVE) Urine Blood Large (NEGATIVE) Urine Nitrite Negative (NEGATIVE) Urine Bilirubin Negative (NEGATIVE) Urine Urobilinogen Negative mg/dL (0.2-1.9) Urine Leukocyte Esterase Negative (NEGATIVE) Urine RBC 59 /HPF (0-2/HPF) Urine WBC 4 /HPF (0-5/HPF) Urine Squamous Epithelial Cells Few /LPF (</=FEW) Urine Bacteria Negative /HPF (NONE-FEW) Urine Mucus None /HPF (NONE-FEW) EKG/Imaging EKG Interpretation EKG shows a sinus bradycardia with ventricular rate of 50 bpm patient does have a pacer defibrillator. I do not see any obvious pacer spikes on the EKG. Patient does have a widened QRS complex at 132 ms with a nonspecific intraventricular block. Patient has T wave inversion in leads 1 and aVL along with V4 through V6. The only EKG prior to this to compare to was from 2014 which showed a paced ventricular rhythm at around 62 bpm. 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 Delirium. COMPARISON: 02/20/2017. TECHNIQUE: Contiguous axial images were obtained from the skull base to the ve rtex without intravenous contrast. Sagittal and coronal reformatted images are also submitted. One of the following dose optimization techniques was utilized in the performance of this exam: Automated exposure control; adjustment of the mA and/or kV according to the patient's size; or use of an iterative reconstruction technique. Specific details can be referenced in the facility's radiology CT exam operational policy. FINDINGS: Brain and intracranial structures: Ventricles, sulci, and cisterns are normal in size. Clancy-white matter differentiation is maintained. Unchanged small midli ne lipoma anterior to the midbrain and abutting the mammillary bodies. No midline shift, acute hemorrhage, or evidence of acute infarct. Calvarium / scalp: Negative. Skull base / visualized face: Negative. Visualized sinuses / orbits: Extensive mucosal thickening and fluid in the maxillary sinuses. Moderate mucosal thickening in the right sphenoid sinus. Mild mucosal thickening in the ethmoid air cells. Mild mucosal thickening in the frontoethmoidal recesses. Slight leftward bowing of the posterior nasal septum and slight rightward bowing of the anterior nasal septum. IMPRESSION: No acute intracranial hemorrhage or evidence of acute infarct. Paranasal sinus mucosal disease. Correlate for signs of acute sinusitis. These findings on the noncontrast head CT were discussed with ANNY COOK at 03/10/2019 8:04 PM. Report Dictated By: Rafy Juarez MD at 03/10/2019 7:58 PM Report E-Signed By: Rafy Juarez MD at 03/10/2019 8:09 PM WSN:[id number] ED Course/Re-evaluation Clinical Indication for ER IV: IV Access ED Course 03/10/2019 8:05:16 pm called by radiology with wet read noncontrast CT of the head pathology and no change from prior noted. Patient with some confusion and slurred speech similar to an intoxicated syndrome however patient does not smell of alcohol and there is no history of alcohol use. So I'll be continued on the past include acute delirium awaiting results of testing including blood alcohol level as well as drug screen testing. Patient's NIH stroke scale is 1 and has no sensory or motor deficits the only deficit noted is the slurred speech. Patient with some inappropriate laughter but does follow commands without difficulty. Additionally nursing staff states that the patient perseverates and talks about alcohol despite the fact that he denies any drinking. We will also consider possible chronic equal, syndrome. We'll give 100 mg of IV thiamine empirically. 03/10/2019 9:15:17 pm additional information obtained. Patient with elevation of transaminases by approximately 15 times normal with normal bilirubin. We will add hepatitis A, B, and C panels. I did obtain urinalysis for toxicology which was positive for opiates. When confronted patient denied taking any type of opiate medication including prescribed medications such as oxycodone, hydrocodone, codeine also denied taking illicit drugs such as heroin but when pressed he did state that he has been taking tramadol that was prescribed to his mother per management of some pain. This certainly might account for some of the patient's symptoms including contusion as well as ataxia review tramadol does show it can cause increased elevations in serum ALT and AST along with serum creatinine but this again is less than 1% of case reports however this does seem to fit the current scenario. Further patient is living by himself and his mother is currently in rehabilitation so he does have access to her medications. In addition reviewing the electronic medical record shows that back in November and December of this past year the patient had normal creatinine with normal liver transaminases and patient states that it was roughly around this time that his mother they'll broke her hip and has been hospitalized since. He was able to find that the mother is also prescribed oxycodone as well as long-acting morphine patient does deny taking knees but certainly patient would head with opiate narcosis and delirium. 03/10/2019 9:39:42 pm this case with Dr. Elijah Higgins and he is admitted the patient at this time for further evaluation. 03/10/2019 9:39:53 pm I spent approximately 35 minutes of direct patient care obtaining history and reviewing patient medical records as well as performing multiple physical exams and questioning. Decision to Disposition Date: March 10, 2019 Decision to Disposition Time: 21:38 Critical Care Time Critical care time for this patient is 35 minutes Depart Departure Latest Vital Signs Vital Signs Date Time Temp Pulse Resp B/P (MAP) Pulse Ox O2 Delivery O2 Flow Rate FiO2 03/10/19 22:00 51 106/96 (99) 03/10/19 21:30 93 03/10/19 20:48 14 03/10/19 19:26 Nasal Cannula Impression: Primary Impression: Altered mental status Condition: Condition Unchanged Disposition: Admitted from ER (to Med / Surg Tele DR Lisbeth Higgins) Referrals: JAN SEQUEIRA (PCP) Problem Qualifiers Primary Impression: Altered mental status Altered mental status type: delirium Qualified Codes: R41.0 - Disorientation, unspecified ANNY COOK MD March 10, 2019 19:24
[2019-03-10] MEDS ORDERED: NS(*) 0.9% 500 ML BAG 500 ML IV ONE (19:35)
[2019-03-10] MEDS ORDERED: IOPAMIDOL 76% 100 ML INFUS BTL 0 ML ONE (19:48)
[2019-03-10] MEDS ORDERED: NS(*) 0.9% 50 ML BAG 0 ML ONE (19:48)
--- NOTE | 2019-03-10 20:13 | RADIOLOGY IMAGING REPORT ---
FACILITY: [facility] PATIENT NAME: Carlos Montgomery : 1955 MR: [id number] V: [id number] EXAM DATE: ORDERING PHYSICIAN: ANNY COOK TECHNOLOGIST: Location[place] [facility] [place] Patient: Carlos Montgomery : 1955 Visit/Account:[id number] Date of Sevice: 03/10/2019 EXAMINATION: Head CT without intravenous contrast HISTORY: Possible stroke. Delirium. COMPARISON: 02/20/2017. TECHNIQUE: Contiguous axial images were obtained from the skull base to the vertex without intraven ous contrast. Sagittal and coronal reformatted images are also submitted. One of the following dose optimization techniques was utilized in the performance of this exam: Autom ated exposure control; adjustment of the mA and/or kV according to the patient's size; or use of an i terative reconstruction technique. Specific details can be referenced in the facility's radiology C T exam operational policy. FINDINGS: Brain and intracranial structures: Ventricles, sulci, and cisterns are normal in size. Clancy-white ma tter differentiation is maintained. Unchanged small midline lipoma anterior to the midbrain and abutt ing the mammillary bodies. No midline shift, acute hemorrhage, or evidence of acute infarct. Calvarium / scalp: Negative. Skull base / visualized face: Negative. Visualized sinuses / orbits: Extensive mucosal thickening and fluid in the maxillary sinuses. Modera te mucosal thickening in the right sphenoid sinus. Mild mucosal thickening in the ethmoid air cells. Mild mucosal thickening in the frontoethmoidal recesses. Slight leftward bowing of the posterior nasa l septum and slight rightward bowing of the anterior nasal septum. IMPRESSION: No acute intracranial hemorrhage or evidence of acute infarct. Paranasal sinus mucosal disease. Correlate for signs of acute sinusitis. These findings on the noncontrast head CT were discussed with ANNY COOK at 03/10/2019 8:04 PM. Report Dictated By: Rafy Juarez MD at 03/10/2019 7:58 PM Report E-Signed By: Rafy Juarez MD at 03/10/2019 8:09 PM WSN:[id number]
[2019-03-10] MEDS ORDERED: THIAMINE HCL 200 MG/2 ML INJ IVP ONE (20:30)
[2019-03-10 20:45] LABS: PLATELET COUNT, AUTOMATED 179 K/uL (150-450)
[2019-03-10 20:51] LABS: INR 3.78
--- NOTE | 2019-03-10 21:14 | EKG ---
FACILITY[place] [facility] [place] PATIENT NAME: TESFAYE COLEMAN : [id number] MR: [id number] V: [id number] EXAM DATE: ORDERING PHYSICIAN: ANNY COOK TECHNOLOGIST: Test Reason : ams Blood Pressure : / mmHG Vent. Rate : 050 BPM Atrial Rate : 050 BPM P-R Int : 128 ms QRS Dur : 132 ms QT Int : 492 ms P-R-T Axes : 115 -84 129 degrees QTc Int : 448 ms Appears may be sinus bradycardia with borderline short WI interval vs. junctional rhythm Left axis deviation Nonspecific intraventricular block Diffuse ST-T findings raise concern for ischemia Abnormal ECG Confirmed by ODALYS TAM ([id number]) on 03/10/2019 10:19:05 PM Referred By: Confirmed By:ODALYS TAM
[2019-03-10] MEDS ORDERED: NS(*) 0.9% 1000 ML BAG 1,000 ML IV ONE (21:25)
--- NOTE | 2019-03-10 21:44 | RADIOLOGY IMAGING REPORT ---
FACILITY: [facility] PATIENT NAME: Carlos Montgomery : 1955 MR: [id number] V: [id number] EXAM DATE: ORDERING PHYSICIAN: ANNY COOK TECHNOLOGIST: Location: [facility] [place] Patient: Carlos Montgomery : 1955 Visit/Account:[id number] Date of Sevice: 03/10/2019 TWO VIEW CHEST 03/10/2019 7:35 PM. INDICATION: Chest Pain COMPARISON: 05/16/2015. FINDINGS: Low normal lung expansion with minimal atelectasis. No suspicious consolidation. No pneum othorax or pleural effusion. Heart size is likely upper limit normal given technique and habitus. I mplanted pacer/defibrillator similar to prior. IMPRESSION: No acute abnormality. Report Dictated By: Elliott Baires MD at 03/10/2019 9:39 PM Report E-Signed By: Elliott aBires MD at 03/10/2019 9:41 PM WSN:[id number]
[2019-03-10] MEDS ORDERED: METO100T20 PO (22:26)
[2019-03-10] MEDS ORDERED: PARO-243 PO (22:26)
[2019-03-10] MEDS ORDERED: NS(*) 0.9% 1000 ML BAG 1,000 ML IV PRN (22:59)
[2019-03-10 23:01] VITALS: BP 121/74
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
[2019-03-11] VITALS (7 sets, daily range): BP systolic 111–137; BP diastolic 64–87; Ht 170.2 cm; Wt 110.2 kg
[2019-03-11 05:52] LABS: INR 3.43
[2019-03-11 05:55] LABS: PLATELET COUNT, AUTOMATED 150 K/uL (150-450)
--- NOTE | 2019-03-11 09:09 | RADIOLOGY IMAGING REPORT ---
FACILITY: [facility] PATIENT NAME: Carlos Montgomery : 1955 MR: [id number] V: [id number] EXAM DATE: ORDERING PHYSICIAN: ODALYS TAM TECHNOLOGIST: Location: [facility] Patient: Carlos Montgomery : 1955 Visit/Account:[id number] Date of Sevice: 03/11/2019 HIP LEFT Indication: Hip pain. Comparison: None available Findings: Structures of the pelvis. Intact. Anatomic alignment at the left hip with mild degenerative change. S purring is seen at the level of the greater trochanter. Pubic rami are intact. IMPRESSION: 1. Mild degenerative change left hip. No acute finding. Report Dictated By: Mario Hernandez MD at 03/11/2019 9:05 AM Report E-Signed By: Mario Hernandez MD at 03/11/2019 9:06 AM WSN:[id number]
--- NOTE | 2019-03-11 09:43 | NUR ---
Physical Therapy Impression PT/OT co eval complete. Pt oriented, but with odd remarks and tangential with conversation throughout session. CGA for bed mobility sup to sit. CGAx2 for transfers with RW, ambulation 2x80' with RW and close chair follow for safety. Pt very impulsive and attempting to sit on stool in hallway, requires firm re-direction.SpO2 WNL on 3L. Pt left with 2 CNAs in bathroom, set up for shower. Recommendation pending progress. Physical Therapy Goals 1: Pt to complete bed mobility with Mini 2: Pt to complete transfers with Mini and appropriate AD 3: Pt to ambulate 150' wtih SBA and appropriate AD 4: Pt to asc/desc one step with CGA. Patient's Goals
--- NOTE | 2019-03-11 09:50 | Hospitalist Progress Note ---
Subjective Progress Notes Subjective This patient was admitted for altered mental status and weakness. He had no acute issues overnight. Patient Complains of: Cardiovascular: No: Chest Pain Respiratory: No: Shortness of Breath Physical Exam Vital Signs Date Time Temp Pulse Resp B/P (MAP) Pulse Ox O2 Delivery O2 Flow Rate FiO2 03/11/19 07:35 50 22 122/78 (93) 94 Nasal Cannula 3.0 03/11/19 07:19 98.6 Intake and Output 03/11/19 07:00 Intake Total 1900 ml Output Total 1625 ml Balance 275 ml Intake Oral 400 ml IV Total 1500 ml Output Urine Total 1625 ml Cardiovascular: Regular Rate and Rhythm Respiratory: Clear to Auscultation Result Diagram: 03/11/19 0533 03/11/19 0533 Monitor Interpretation: Sinus Bradycardia Assessment and Plan Problems: (1) Altered mental status Status: Acute Assessment & Plan: CT scan of the head was unremarkable. A psychiatry consult may be of benefit. (2) Dehydration Status: Acute Assessment & Plan: Resolved with IV fluids. (3) Falls Status: Acute Assessment & Plan: Physical and occupational therapy consults are ordered. (4) Chronic systolic (congestive) heart failure Assessment & Plan: He is on chronic treatment with Losartan and metoprolol. (5) CAD (coronary artery disease) Status: Chronic Assessment & Plan: He is on chronic treatment with aspirin. (6) Pulmonary embolism and infarction Status: Resolved Assessment & Plan: He is on chronic treatment with warfarin, which is currently on hold secondary to an elevated INR. (7) Thrombus of right atrial appendage Status: Chronic Assessment & Plan: He has been managed on warfarin as noted above. (8) Pacemaker Status: Chronic Assessment & Plan: Will monitor on telemetry. He states it has been in place for 4-5 years and has been doing his pacer checks "once or twice a year". (9) Cardiac defibrillator in place Status: Chronic Assessment & Plan: He has not appreciated any defibrillator discharges. Exam Sepsis Risk: No Definite Risk Problem Qualifiers (1) Altered mental status: Altered mental status type: delirium Qualified Codes: R41.0 - Disorientation, unspecified SHELDON WEBER DO March 11, 2019 09:50
--- NOTE | 2019-03-11 11:49 | NUR ---
Pt unable to accurately recall rxs. Attempted to call pharmacy, closed due to holiday. Addendum: 03/11/19 at 1152 by MEGHNA AWAD RN Amended: Links added.
[2019-03-11] MEDS ORDERED: WARFARIN SOD 5 MG TAB PO SCH ×3 (13:00)
--- NOTE | 2019-03-11 14:39 | NUR ---
Occupational Therapy Impression Co-evaluation with PT. Pt. very impulsive during therapy session, attempting to sit on bar stool in hallway as well as performing sit to stand with no notification to therapist. Pt. ambulated 70 feet x2 on 3 L of O2. Pt. is not safe to return to home at this time. OT will determine d/c recommendation pending progress. Pt. would benefit from OT services 5x/ week to increase independence with ADL's. Occupational Therapy Goals 1. Pt. to perform dressing activities with I. 2. Pt. to perform showering activities with Min A. 3. Pt. to perform toileting activities with I. 4. Pt. to perform grooming activities with I. Patient's Goal
[2019-03-11] MEDS: ACETAMINOPHEN 500 MG TAB PO PRN (18:20)
[2019-03-12] VITALS (7 sets, daily range): BP systolic 109–129; BP diastolic 67–88
[2019-03-12 06:14] LABS: INR 2.09
--- NOTE | 2019-03-12 08:42 | NUR ---
Physical Therapy Impression Pt continues to be tangential and inappropriate in some responses today. I) bed mobility performed with good ability to manage sheets and blankets. SBA for transfers, ambulation x250' with RW and CGA provided d/t pt's poor safety insight as well as impulsivity. Pt with good tolerance to ambulation. PT instruction for stair negotiation, pt completed asc/desc one one step with RW and CGA. Pt may be at/near baseline level of functional mobility. Recommended [facility] PT, pt reports that he is not interested. Physical Therapy Goals 1: Pt to complete bed mobility with Mini 2: Pt to complete transfers with Mini and appropriate AD 3: Pt to ambulate 150' wtih SBA and appropriate AD 4: Pt to asc/desc one step with CGA. Patient's Goals
--- NOTE | 2019-03-12 10:26 | Hospitalist Progress Note ---
Subjective Progress Notes Subjective The patient was found masturbating in his room yesterday. He, reportedly, had no incite into the fact that it is inappropriate in a public setting. Staff reporting that he is very tangential. Physical Exam Vital Signs Date Time Temp Pulse Resp B/P (MAP) Pulse Ox O2 Delivery O2 Flow Rate FiO2 03/12/19 08:14 97 Nasal Cannula 2.0 03/12/19 07:34 97.6 52 18 129/88 (102) Intake and Output 03/12/19 07:00 Intake Total 1420 ml Output Total 1440 ml Balance -20 ml Intake Oral 1420 ml Output Urine Total 1440 ml # Voids 6 # Bowel Movements 1 General Appearance: Alert, Awake, No Acute Distress, Other (Calm, sarcastic. ) Neuro: No Gross deficits, Other (Knows place, date, and some of the events leading to admission. He won't always answer questions directly. Like, when asked where he is, he answered an over priced hotel. When pressed to say the name, he continued to talk about how over priced it was and that people carry needles. Later, he said hospital when we were wrapping up the interview.) Cardiovascular: Regular Rate and Rhythm Respiratory: Clear to Auscultation GI: Soft and Non-Tender Result Diagram: 03/11/1953203/11/19532 Monitor Interpretation: Sinus Bradycardia Assessment and Plan Problems: (1) Altered mental status Status: Acute Assessment & Plan: He presented a couple days of falls, dropping objects, tangential in thought and slurred speech. CT scan of the head was unremarkable. He had ARF and elevated AST/ALT c/w hypoperfusion. He is mostly pacemaker depe ndant with the default rate at 49bpm. Likely, there was a component of intoxification for Tramadol/Morphine that was compounded the borderline bradycardia and dehydration. Currently, he knows where he is and some of the events leading to admission. He can be tangential with staff, at times and do esn't seem to have insight into what is socially appropriate behavior. I attempted to call his son, but the phone number is incorrect. I suspect that he is near his baseline behavior. Will Psychiatry to evaluate. (2) ARF (acute renal failure) Status: Acute Assessment & Plan: Improving with IVF. Near baseline. Will saline lock and follow. (3) Elevated LFTs Status: Acute Assessment & Plan: Improving. Continue to follow. Viral hepatitis panel pending. See above. (4) Falls Status: Acute Assessment & Plan: Likely, related to dehydration, opioid intoxication, and borderline bradycardia. No falls since admission. Physical and occupational therapy report that he is very impulsive and not safe to return home, yesterday. (5) Pacemaker Status: Chronic Assessment & Plan: He is paced at 49bpm. He states it has been in place for 4- 5 years and has been doing his pacer checks "once or twice a year". (6) Chronic systolic (congestive) heart failure Assessment & Plan: No evidence of exacerbation. EF 42% in 2013. He is on chronic treatment with Losartan and metoprolol, which are held. Echo today. (7) CAD (coronary artery disease) Status: Chronic Assessment & Plan: He is on chronic treatment with aspirin. (8) Pulmonary embolism and infarction Status: Resolved Assessment & Plan: He is on chronic treatment with warfarin, which was on hold secondary to an elevated INR. Restart today. Daily INR. (9) Thrombus of right atrial appendage Status: Chronic Assessment & Plan: He has been managed on warfarin as noted above. (10) Cardiac defibrillator in place Status: Chronic Assessment & Plan: He has not appreciated any defibrillator discharges. Exam Sepsis Risk: No Definite Risk Problem Qualifiers (1) Altered mental status: Altered mental status type: delirium Qualified Codes: R41.0 - Disorientation, unspecified KACEY HOSKINS MD March 12, 2019 10:26
--- NOTE | 2019-03-12 12:01 | NUR ---
Occupational Therapy Impression Independent bed mobility in/out. Mod (I) ambulation with RW. Independent LB dressing. Independent standing in bathroom [id number] for oral care. No loss of balance throughout tx. Pt demonstrating appropriate strength, coordination, and sequencing to complete ADLs. Pt declines concerns/needs for discharge home. Pt demonstrates decreased insight and safety awareness for ADLs/IADLs. Psychiatry to evaluate today. Pending psychiatry evaluation, recommend discharge home when medically appropriate. Occupational Therapy Goals 1. Pt. to perform dressing activities with I. 2. Pt. to perform showering activities with Min A. 3. Pt. to perform toileting activities with I. 4. Pt. to perform grooming activities with I. Patient's Goal
[2019-03-12] MEDS ORDERED: WARFARIN SOD 2.5 MG TAB PO SCH ×3 (13:00)
--- NOTE | 2019-03-12 14:24 | Psychiatric Consult ---
History of Present Illness Requesting Physician Dr. Russell Reason for Consult: Psychiatric Illness Reason for Consult altered mental status History of Present Illness 63 year old man with past hx of depression, significant CAD, s/p AL about 5 yrs ago, heart failure, stent, pacemaker and defibrillator-- presented 3 days ago with AMS, weakness, falling. Staff note he has been odd, socially inappropr iate, confused, found masturbating in his room. They do note he has cleared a little since admission, was his most mentally organized today. I spoke with his ex- Apoorva (an acquaintance of mine) who says his usual baseline is not confused, but he can be socially awkward-- "He's an old collin who flirts with nurses and waitresses, he tries to tell jokes that can be funny but often are not." On the day of admission pt was weak, falling at home, and called Apoorva's mother (his ex mother in law) to take him to the hospital because he could not remember Apoorva's phone number. Apoorva and their son Madi went to the home and found him confused, unable to remember the combo to his safe, unable to recall phone numbers-- she said she has never seen him so confused. Pt did admit to taking some of his mother's tramadol for hip pain, "It didn't help, so I took some more." Today pt is able to recall all of these details about the day of admission and his story is same as Apoorva's report. Pt's past psychiatric history is positive for mild to mod depression in past, took paxil as out-patient. No history of Asperger's, Austism, psychotic disorder. He experimented with drugs in the 70's but none since. Former social drinker, has not drank since his AL 5 yrs ago. Patient Refused Consult: No BHS - Subjective Progress Notes Subjective I was having problems with my legs collapsing. I couldn't stand to pee, so I peed in a bowl sitting on the side of the tub, then I knock that over and it was all over the floor. I spilled my spaghetti on the couch, and Calvin my cat helped me clean that up (laughing). I knew I was too weak so I called my family to bring me here. Suicidal Ideation: None Homicidal Ideation: None BHS - Objective Mental Status Exam General Appearance: Casual, Cooperative, Polite Speech: Clear, Spontaneous, Normal Rate, Normal Rhythm Mood: Euthymic Affect: Calm, Anxious, Other (a little socially anxious, tries to cover with paty kes) Thought Process: Organized, Logical, Goal Directed, Other (circumstantial) Thought Content: No Suicidal Ideation, No Homicidal Ideation, No Delusions, No Auditory Halllucinations, No Visual Hallucinations, No Thought Broadcasting, No Ideas of Reference, No Obsessions, No Compulsions, No Other Sensorium: Clear Cognition: Alert & Oriented-Place, Alert & Oriented-Time, Dmnth-Qzghxadw-Xhlwbgstj Memory: Immediate, Recent, Remote Intelligence: Average Insight Judgment: Fair Result Diagram: 03/11/1934 03/11/19 0533 [facility] Assessment and Plan Tfsq-ec-Bkit Encounter Date: March 12, 2019 Fttw-pn-Lacu Encounter Time: 13:30 Problems: (1) Delirium due to another medical condition Assessment & Plan: AMS likely related to hypoxia (BP and /or pulse too low), possibly also to overuse of tramadol. Ex Apoorva told me all the mother's extra pills have been removed from the home already. I suspect he will continue to clear with medical stabilization. I have seen delerium/ decreased cognition in pt's whose BP medically managed to run too low.... his heart rate is certainly low... I do not see underlying evidence for significant psychiatric pathology like Asperger's or psychotic disorder. Treatment Recommendation: VIKTORIA Stark MD March 12, 2019 14:24
[2019-03-12] MEDS ORDERED: LOSA-54 PO (15:01)
[2019-03-12] MEDS: ACETAMINOPHEN 500 MG TAB PO PRN (23:46)
[2019-03-13 02:58] VITALS: BP 133/86
[2019-03-13 04:50] LABS: INR 1.62
[2019-03-13 07:19] VITALS: BP 137/80
[2019-03-13] MEDS ORDERED: WARF5TAB23 PO (07:42)
[2019-03-13] MEDS ORDERED: METO50TA19 PO (07:42)
--- NOTE | 2019-03-13 08:10 | Hospitalist Depart ---
Discharge Summary Reason for Hosp/Final Diag: (1) Altered mental status Status: Acute Hospital Course & Plan: He presented a couple days of falls, dropping objects, tangential in thought and slurred speech. CT scan of the head was unremarkable. He had acute renal failure and elevated AST/ALT consistent with dehydration and subsequent hypoperfusion. He is mostly pacemaker dependant with the default rate at 49-50bpm. Likely, there was also a component of intoxication with oral Tramadol and Morphine (taking his mother's medications). Currently, he is at his baseline mental status. He can be tangential with staff, at times and doesn't seem to have insight into what is socially appropriate behavior. Dr. Waddell (psychiatry) evaluated him as well. She felt he did not have significant psychiatric pathology and his symptoms were most likely related to his underlying medical problems and the medications. (2) ARF (acute renal failure) Status: Acute Hospital Course & Plan: Due to dehydration and possible poor intake. His diuretic was stopped and labs improved with IV fluids. His creatinine returned to normal (0.7 at time of discharge). (3) Elevated LFTs Status: Acute Hospital Course & Plan: Suspected to be due to dehydration with decreased perfusion. Improved with IV fluids. Viral hepatitis panel negative. (4) Falls Status: Acute Hospital Course & Plan: Likely, related to dehydration, opioid intoxication, and borderline bradycardia. No falls since admission. Physical and occupational therapy did see him and recommended Home Health Care physical therapy, but he refused. (5) Pacemaker Status: Chronic Hospital Course & Plan: It appears he has a back-up rate of 49-50bpm. He states it has been in place for 4-5 years and has been doing his pacer checks "once or twice a year". He will need to see cardiology in near future to discuss possible modifications to his pacemaker rate to maximize his functional level. We did decrease his metoprolol extended release to 50mg daily. (6) Chronic systolic (congestive) heart failure Hospital Course & Plan: No evidence of an acute exacerbation. He had been on chronic treatment with Losartan and metoprolol. The metoprolol dose was reduced to 50mg daily and the losartan HCTZ was stopped. He did have an echocardiogram done during his stay, which showed an apparent improvement in his EF (45-50%) since his last check. He will need to follow up with his primary care provider (Candelaria DIAZ) and cardiology in very near future. (7) CAD (coronary artery disease) Status: Chronic Hospital Course & Plan: He is on chronic treatment with aspirin, metoprolol, atorvastatin. (8) Pulmonary embolism and infarction Status: Resolved Hospital Course & Plan: He is on chronic treatment with warfarin, which was continued at 5mg qoday alternating with 2.5mg. His INR will need to be rechecked in 2 days as an outpatient. (9) Thrombus of right atrial appendage Status: Chronic Hospital Course & Plan: He has been managed on warfarin as noted above. (10) Cardiac defibrillator in place Status: Chronic Hospital Course & Plan: He has not appreciated any defibrillator discharges. Departure Weight (Pounds): 243 Weight (Ounces): 4.0 Result Diagram: 03/11/1934 03/13/1945 Item Value Date Time Hepatitis A IgM Ab Confirmation Negative 03/10/192119 Hepatitis A Antibody Total Negative 03/10/192119 Hepatitis A Interpretation See note 03/10/192119 Hepatitis B Surface Antigen Negative 03/10/192119 Hepatitis B Surface Antibody 4.70 IU/L 03/10/192119 Hepatitis Be Antibody Negative 03/10/192119 Hepatitis Be Antigen Negative 03/10/192119 Hepatitis C Antibody Negative 03/10/191949 Hepatitis Interpretation See note 03/10/192119 Albumin 3.7 g/dl 03/10/191956 Thyroid Stimulating Hormone (TSH) 1.39 uIU/ml 03/10/191956 Total Protein 7.2 g/dl 03/10/191956 B-Type Natriuretic Peptide 851 pg/ml H 03/10/191956 Troponin I 0.029 ng/ml 03/10/191956 Alkaline Phosphatase 81 U/L 03/10/191956 Alanine Aminotransferase (ALT/SGPT) 572 U/L H 03/10/191956 Aspartate Amino Transf (AST/SGOT) 559 U/L H 03/10/191956 Total Bilirubin 0.6 mg/dl 03/10/191956 Magnesium Level 1.9 mg/dl 03/10/191956 Calcium Level 9.0 mg/dl 03/10/191956 Random Glucose 132 mg/dl H 03/10/191956 Glomerular Filtration Rate Calc 30.3 03/10/191956 Creatinine 2.20 mg/dl H 03/10/191956 Blood Urea Nitrogen 86 mg/dl H 03/10/191956 Carbon Dioxide Level 25 mmol/L 03/10/191956 Chloride Level 99 mmol/L 03/10/191956 Potassium Level 4.4 mmol/L 03/10/191956 Sodium Level 134 mmol/L L 03/10/191956 Lactate 3.1 mmol/L H 03/10/191956 Osmolality 312 mOSM/K H 03/10/191956 Albumin 3.1 g/dl L 03/11/19 0533 Total Protein 6.1 g/dl L 03/11/19 0533 Troponin I 0.030 ng/ml 03/11/19 0533 Alkaline Phosphatase 83 U/L 03/11/19 0533 Alanine Aminotransferase (ALT/SGPT) 447 U/L H 03/11/19 0533 Aspartate Amino Transf (AST/SGOT) 286 U/L H 03/11/19 0533 Total Bilirubin 0.7 mg/dl 03/11/19 0533 Magnesium Level 1.8 mg/dl 03/11/19 0533 Calcium Level 8.6 mg/dl 03/11/19 0533 Random Glucose 101 mg/dl 03/11/19 0533 Glomerular Filtration Rate Calc 55.6 03/11/19 0533 Creatinine 1.30 mg/dl H 03/11/19 0533 Blood Urea Nitrogen 59 mg/dl H 03/11/19 0533 Carbon Dioxide Level 24 mmol/L 03/11/19 0533 Chloride Level 104 mmol/L 03/11/19 0533 Potassium Level 3.5 mmol/L 03/11/19 0533 Sodium Level 137 mmol/L 03/11/19 0533 Albumin 2.9 g/dl L 03/13/19 0545 Total Protein 5.8 g/dl L 03/13/19 0545 Alkaline Phosphatase 90 U/L 03/13/19 0545 Alanine Aminotransferase (ALT/SGPT) 270 U/L H 03/13/19 0545 Aspartate Amino Transf (AST/SGOT) 97 U/L H 03/13/19 0545 Total Bilirubin 0.8 mg/dl 03/13/19 0545 Calcium Level 8.6 mg/dl 03/13/19 0545 Prothrombin Time 38.2 seconds H 03/10/191956 Prothromb Time International Ratio 3.78 03/10/191956 Activated Partial Thromboplast Time 37 seconds H 03/10/191956 Prothromb Time International Ratio 3.43 03/11/19 0533 Prothrombin Time 35.4 seconds H 03/11/19 0533 Prothromb Time International Ratio 2.09 03/12/19 0537 Prothrombin Time 23.8 seconds H 03/12/19 0537 Prothrombin Time 19.4 seconds H 03/13/195 Prothromb Time International Ratio 1.62 03/13/19434 Urine Color Yellow 03/10/191949 Urine Clarity Clear 03/10/191949 Urine pH 5.0 pH 03/10/191949 Urine Specific [place] 1.012 03/10/191949 Urine Protein Negative mg/dL 03/10/191949 Urine Glucose (UA) Negative mg/dL 03/10/191949 Urine Blood Large 03/10/191949 Urine Ketones Negative mg/dL 03/10/191949 Urine Nitrite Negative 03/10/191949 Urine Bilirubin Negative 03/10/191949 Urine Urobilinogen Negative mg/dL 03/10/191949 Urine Leukocyte Esterase Negative 03/10/191949 Urine RBC 59 /HPF 03/10/191949 Urine WBC 4 /HPF 03/10/191949 Urine Squamous Epithelial Cells Few /LPF 03/10/191949 Urine Bacteria Negative /HPF 03/10/191949 Urine Mucus None /HPF 03/10/191949 Serum Alcohol < 10 mg/dl 03/10/191956 Acetaminophen Level < 10 ug/ml 03/10/191956 Salicylates Level < 10 mg/L 03/10/191956 Urine Opiates Screen Positive 03/10/191949 Urine Barbiturates Screen Negative 03/10/191949 Ur Tricyclic Antidepressants Screen Negative 03/10/191949 Urine Phencyclidine Screen Negative 03/10/191949 Urine Amphetamines Screen Negative 03/10/191949 Urine Benzodiazepines Screen Negative 03/10/191949 Urine Cocaine Screen Negative 03/10/191949 Urine Cannabinoids Screen Negative 03/10/191949 Stool Occult Blood (IFOB) Negative 03/10/19 0000 [facility] *LIVE* [address] [place] [address] XU AMOS M.D., DIRECTOR OF LABORATORY SERVICES AMANDA MONSON M.D., PATHOLOGIST RUN DATE: 03/12/19 Specimen Inquiry Report PAGE 1 RUN TIME: 1128 - PATIENT: CARLOS COLEMAN ACCT: [id number] LOC: [facility] U: [id number] AGE/SX: 63/M ROOM: [facility]6 RE03/10/[address]: ODALYS TAM MD : 1955 BED: 276 DIS: STATUS: ADM IN TLOC: SPEC #: [id number] MADALYN: 03/10/19 STATUS: COMP REQ #: [id number] RECD: 03/10/19 [facility] DR: ODALYS TAM MD SOURCE: [facility] ENTR: 03/10/19 [facility] DR: JAN SEQUEIRA [facility] SPDESC: ORDERED: CULT URINE COMMENTS: Comments: please run on urine collected in ER - Thanks Procedure Result Verified URINE CULTURE Final 03/12/19-1128 <10,000 COL/ML MULTIPLE COLONY TYPES PRESENT NO PATHOGENS APPARENT --- --------- [facility] *LIVE* [address] [place] [address] XU AMOS M.D., DIRECTOR OF LABORATORY SERVICES AMANDA MONSON M.D., PATHOLOGIST RUN DATE: 03/12/19 Specimen Inquiry Report PAGE 1 RUN TIME: 1000 ---- -------- PATIENT: CARLSO COLEMAN ACCT: [id number] LOC: MED U: [id number] AGE/SX: 63/M ROOM: 2276 RE03/10/[address]: ODALYS TAM MD : 1955 BED: 276 DIS: STATUS: ADM IN TLOC: SPEC #: [id number] MADALYN: 03/10/19 STATUS: RES REQ #: [id number] RECD: 03/10/19 [facility] DR: ANNY COOK MD SOURCE: BLOOD PER ENTR: 03/10/19-[address] ORDERED: CULT BLOOD Procedure Result Verified BLOOD CULTURE Preliminary 03/12/19-1000 NO GROWTH AFTER 2 DAYS, [facility]CU[facility] [address] [place] [address] XU AMOS M.D., DIRECTOR OF LABORATORY SERVICES AMANDA MONSON M.D., PATHOLOGIST RUN DATE: 03/12/19 Specimen Inquiry Report PAGE 1 RUN TIME: 1000 PATIENT: CARLOS COLEMAN ACCT: [id number] LOC: [facility] U: [id number] AGE/SX: 63/M ROOM: 2276 RE03/10/[address]: ODALYS TAM MD : 1955 BED: 276 DIS: STATUS: ADM IN TLOC: SPEC #: [id number] MADALYN: 03/10/19 STATUS: RES REQ #: [id number] RECD: 03/10/[address]: ANNY COOK MD SOURCE: BLOOD PER ENTR: 03/10/[address]: JAN SEQUEIRA [facility] SPDESC: ORDERED: CULT BLOOD Procedure Result Verified ------- ----- BLOOD CULTURE Preliminary 03/12/19-1000 NO GROWTH AFTER 2 DAYS, REINCUBATED Imaging PATIENT NAME: Carlos Coleman : 1955 MR: [id number] V: [id number] EXAM DATE: ORDERING PHYSICIAN: ANNY COOK TECHNOLOGIST: Location: [facility] Patient: Carlos Coleman : 1955 Visit/Account:[id number] Date of Sevice: 03/10/2019 EXAMINATION: Head CT without intravenous contrast HISTORY: Possible stroke. Delirium. COMPARISON: 02/20/2017. TECHNIQUE: Contiguous axial images were obtained from the skull base to the vertex without intravenous contrast. Sagittal and coronal reformatted images are also submitted. One of the following dose optimization techniques was utilized in the performance of this exam: Automated exposure control; adjustment of the mA and/or kV according to the patient's size; or use of an iterative reconstr uction technique. Specific details can be referenced in the facility's radiology CT exam operational policy. FINDINGS: Brain and intracranial structures: Ventricles, sulci, and cisterns are normal in size. Clancy-white matter differentiation is maintained. 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 No midline shift, acute hemorrhage, or evidence of acute infarct. Calvarium / scalp: Negative. Skull base / visualized face: Negative. Visualized sinuses / orbits: Extensive mucosal thickening and fluid in the maxillary sinuses. Moderate mucosal thickening in the right sphenoid sinus. Mild mucosal thickening in the ethmoid air cells. Mild mucosal thickening in the frontoethmoidal recesses. Slight leftward bowing of the posterior nasal septum and slight rightward bowing of the anterior nasal septum. IMPRESSION: No acute intracranial hemorrhage or evidence of acute infarct. Paranasal sinus mucosal disease. Correlate for signs of acute sinusitis. These findings on the noncontrast head CT were discussed with ANNY COOK at 03/10/2019 8:04 PM. Report Dictated By: Rafy Juarez MD at 03/10/2019 7:58 PM Report E-Signed By: Rafy Juarez MD at 03/10/2019 8:09 PM WSN:[id number] PATIENT NAME: Carlos Coleman : 1955 MR: [id number] V: [id number] EXAM DATE: [id number] ORDERING PHYSICIAN: ANNY COOK TECHNOLOGIST: Location: [facility] Patient: Carlos Coleman : 1955 Visit/Account:[id number] Date of Sevice: 03/10/2019 TWO VIEW CHEST 03/10/2019 7:35 PM. INDICATION: Chest Pain COMPARISON: 05/16/2015. FINDINGS: Low normal lung expansion with minimal atelectasis. No suspicious consolidation. No pneumothorax or pleural effusion. Heart size is likely upper limit normal given technique and habitus. Implanted pacer/defibrillator similar to prior. IMPRESSION: No acute abnormality. Report Dictated By: Elliott Baires MD at 03/10/2019 9:39 PM Report E-Signed By: Elliott Baires MD at 03/10/2019 9:41 PM WSN:[id number] PATIENT NAME: Carlos Coleman : 1955 MR: [id number] V: [id number] EXAM DATE: [id number] ORDERING PHYSICIAN: ODALYS TAM TECHNOLOGIST: Location: [facility] Patient: Carlos Coleman : 1955 Visit/Account:[id number] Date of Sevice: 03/11/2019 HIP LEFT Indication: Hip pain. Comparison: None available Findings: Structures of the pelvis. Intact. Anatomic alignment at the left hip with mild degenerative change. Spurring is seen at the level of the greater trochanter. Pubic rami are intact. IMPRESSION: 1. Mild degenerative change left hip. No acute finding. Report Dictated By: Mario Hernandez MD at 03/11/2019 9:05 AM Report E-Signed By: Mario Hernandez MD at 03/11/2019 9:06 AM WSN:[id number] EKG PATIENT NAME: CARLOS COLEMAN : [id number] MR: [id number] V: [id number] EXAM DATE: ORDERING PHYSICIAN: ANNY COOK TECHNOLOGIST: Test Reason : ams Blood Pressure : / mmHG Vent. Rate : 050 BPM Atrial Rate : 050 BPM P-R Int : 128 ms QRS Dur : 132 ms QT Int : 492 ms P-R-T Axes : 115 -84 129 degrees QTc Int : 448 ms Appears may be sinus bradycardia with borderline short DE interval vs. junctional rhythm Left axis deviation Nonspecific intraventricular block Diffuse ST-T findings raise concern for ischemia Abnormal ECG Confirmed by ODALYS TAM ([id number]) on 03/10/2019 10:19:05 PM Referred By: Confirmed By:ODALYS TAM Condition: Improved Discharge: Home Follow-Up Labs: INR (On Monday03/15/19 with Candelaria DIAZ) Time Spent: > 30 min Discharge Instructions Home Meds Active Scripts Metoprolol Succinate (METOPROLOL SUCCINATE) 50 Mg Tab.er.24h, 50 MG PO QDAY for 30 Days, #30 TAB 1 Refill Prov:ODALYS TAM MD 03/13/19 Warfarin Sodium (WARFARIN SODIUM) 5 Mg Tablet, 5 MG PO DIRECTED for 30 Days, TAB One tab (5mg) PO every other day alternating with one-half tab (2.5mg). Need follow up appointment and protime with Candelaria DIAZ in next 2 days. Prov:ODALYS TAM MD 03/13/19 Reported Medications Paroxetine Hcl (PAXIL) 20 Mg Tablet, 40 MG PO QDAY, TAB 03/10/19 Aspirin (ASPIR 81) 81 Mg Tablet.dr, 81 MG PO QDAY, TAB 12/11/18 Atorvastatin Calcium (LIPITOR) 40 Mg Tablet, 1 TAB PO QDAY, TAB 05/16/15 Discontinued Reported Medications Losartan/Hydrochlorothiazide (LOSARTAN-HCTZ 100-25 MG TAB) 1 Each Tablet, 1 EACH PO QDAY 03/12/19 Metoprolol Succinate (METOPROLOL SUCCINATE) 100 Mg Tab.er.24h, 2 TAB PO QDAY, TAB 03/10/19 Losartan Potassium (LOSARTAN POTASSIUM) 100 Mg Tablet, 100 MG PO QDAY 05/16/15 Metoprolol Succinate (TOPROL XL) 100 Mg Tab.er.24h, 1 TAB PO QDAY, TAB 05/16/15 Paroxetine Hcl (PAROXETINE HCL) 20 Mg Tablet, 20 MG PO QDAY 05/16/15 Discontinued Scripts Cephalexin (KEFLEX) 500 Mg Capsule, 500 MG PO TID for prevention of infection, #30 CAP Prov:LEROY ALVARADO DO 06/23/15 Diet: No Added Salt (BLAINE), Low Cholesterol & Sat Fat Activity: As Tolerated, No Exertion Special Instructions: Follow up with Candelaria DIAZ on Monday03/15/19. Follow up with cardiology in next 1-2 weeks. Return to ER if any problems. DO NOT TAKE any medications other than as prescribed specifically for you. Copies to: JAN SEQUEIRA ; Venous Thromboembolism Antithrombotics Is Pt On Any Antithrombotics?: Yes Problem Qualifiers (1) Altered mental status: Altered mental status type: delirium Qualified Codes: R41.0 - Disorientation, unspecified ODALYS TAM MD March 13, 2019 08:09
--- NOTE | 2019-03-13 08:52 | NUR ---
Physical Therapy Impression Patient instructed in gait training throughout hospital without AD and with CGA ~400 feet with cuing for safety. Patient also performed one platform step x 2 reps with no railing with CGA. Patient reports of hip pain in left hip a 4/10 with ambulation and nursing was notified. Patient educated on OP therapy and was given a card for a referral to the [facility] to provide him with information on financial assistance as he is self pay. Patient showed interest in OP therapy as he realizes he needs change. All goals are met and patient is ready to d/c to home. Physical Therapy Goals 1: Pt to complete bed mobility with Mini 2: Pt to complete transfers with Mini and appropriate AD 3: Pt to ambulate 150' wtih SBA and appropriate AD 4: Pt to asc/desc one step with CGA. Patient's Goals
[2019-03-13] MEDS ORDERED: METOPROLOL SUCC XL 50 MG TABCR 50 MG TAB.ER.24H PO SCH (09:00)
[2019-03-13] MEDS ORDERED: WARFARIN SOD 5 MG TAB PO SCH (13:00)
[2019-03-15] MEDS ORDERED: INFLUENZA VIRUS VAC 0.5ML SYR IM ONLY ONE (09:00)
== END 2019-03-13 10:35 | disposition home or self-care (01) | DRG 918 ==
LOC: ER 19:33 → MED 22:05
PROVIDERS: ADMIT Internal Medicine; ATTEND Internal Medicine
DX: T40.4X1A Poisoning by other synthetic narcotics, accidental (unintentional), initial encounter (principal); N17.9 Acute kidney failure, unspecified; I50.22 Chronic systolic (congestive) heart failure; T40.2X1A Poisoning by other opioids, accidental (unintentional), initial encounter; E86.0 Dehydration; R00.1 Bradycardia, unspecified; R29.701 NIHSS score 1; I25.10 Atherosclerotic heart disease of native coronary artery without angina pectoris; Z91.81 History of falling; Z95.0 Presence of cardiac pacemaker; Z79.01 Long term (current) use of anticoagulants; Z86.711 Personal history of pulmonary embolism; Z73.4 Inadequate social skills, not elsewhere classified; I25.2 Old myocardial infarction; Z88.8 Allergy status to other drugs, medicaments and biological substances
CPT/HCPCS: 36415; 36416; 70450; 71046; 80305; 80320; 80329; 81001; 82040; 82140; 82247; 82274; 82310; 82374; 82435; 82550; 82565; 82947; 82948; 83605; 83735; 83880; 83930; 84075; 84132; 84155; 84295; 84443; 84450; 84460; 84484; 84520; 85025; 85610; 85730; 86706; 86707; 86708; 86709; 86803; 86850; 86900; 86901; 87040; 87088; 87340; 87350; 93005; 93306; 96361; 96374; 97161; 97165; 99291; J3411; J7030; J7040; J7050; Q9967